=== PATIENT | female | born 1990 | race Caucasian/White ===

== ENCOUNTER → 2019-10-15 09:16 | Outpatient (CLI) | payer BC, SELFPAY ==
--- NOTE | ~2019-10-15 | US_ITS ---
EXAMINATION: US abdomen complete EXAM DATE: 10/15/2019 09:54 INDICATION: Generalized abdominal pain, diarrhea. Irritable bowel syndrome. TECHNIQUE: Multiple grayscale and Doppler images of the complete abdomen were obtained (by a technolo gist who performed the scan) and subsequently reviewed. There is no prior study for comparison. FINDINGS: The abdominal aorta is normal in caliber. Visualized portion IVC is patent. The pancreatic head a nd body are normal in appearance. The pancreatic tail is not visualized. The liver has normal echogenicity and contour. There are no focal liver lesions identified. There is no evidence of intrahepatic biliary duct dilation. Portal venous flow was seen in the hepatopedal , normal direction and has normal Doppler waveform. Common bile duct measures 3-4 mm, which is normal. The gallbladder wall is normal in thickness, with expected amount of distention. No sonographic evidence of pericholecystic fluid. There is no cholel ithiases. Technologist performing exam reports patient did not demonstrate sonographic James's sign. Please note that this sign is less reliable in patients who have received pain medication. Right kidney: There is normal contour and echogenicity. It measures 10.8 x 4.2 x 6.2 centimeters. There are no focal renal lesions identified. There is no hydronephrosis. Left kidney: There is normal contour and echogenicity. It measures 11.4 x 5.3 x 5.3 centimeters. T here are no focal renal lesions identified. There is no hydronephrosis. The spleen measures 9.9 x 4.4 centimeters and is morphologically normal. IMPRESSION: 1. Unremarkable complete abdominal ultrasound exam. Reviewed, dictated and finalized at location A. 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
== END ==
PROVIDERS: PCP Emergency Medicine; Visit Provider Emergency Medicine
DX: K58.0 Irritable bowel syndrome with diarrhea (principal)
CPT/HCPCS: 76700

== ENCOUNTER 2020-06-26 14:55 | Emergency (ER) | payer OTHER, SELFPAY ==
[2020-06-26] VITALS (20 sets, daily range): BP systolic 99–132; BP diastolic 82–95; PULSE 75–125; RESP 10–36; TEMP 36.9; O2SAT 96–100
--- NOTE | ~2020-06-26 | XR_ITS ---
EXAMINATION: XR chest 2V EXAM DATE: 06/26/2020 15:19 INDICATION: CHEST PAIN/SOB FOR 45 MIN, LT SHOULDER PAIN,HX OF OLD STERNUM FX TECHNIQUE: Frontal and lateral projections of the chest obtained and reviewed. Comparison is made to prior examination from 08/06/2008. FINDINGS: The lungs are clear. There are no pleural effusions. The cardiomediastinal silhouette is within normal limits. There is no pneumothorax suspected. The bones and soft tissues are unremarkab le. IMPRESSION: No acute cardiopulmonary findings. Reviewed, dictated and finalized at location A.
--- NOTE | 2020-06-26 14:57 | ECG_ITS ---
Measurements Intervals T[place] Rate: 105 P: 82 WI: 112 QRS: 85 QRSD: 94 T: 72 QT: 331 QTc: 439 Interpretive Statements SINUS TACHYCARDIA WITH SHORT WI INTERVAL BORDERLINE ST-T WAVE ABNORMALITY- ANTEROLAT/INF LEADS BASELINE ARTIFACT- I, II, III, AVR, AVL, AVF, V4-V6 ABNORMAL ECG Electronically Signed On 06-26-2020 15:13:32 CDT by James Saini D.O.
[2020-06-26 15:18] LABS: Basophils Absolute Auto 0.1 K/mm3 (0.0-0.1); Basophils Percent Auto 1.3 % (0.2-1.2); Eosinophils Absolute Auto 0.2 K/mm3 (0-0.3); Eosinophils Percent Auto 3.9 % (0-4.4); Hematocrit 39.1 % (37.0-47.0); Hemoglobin 13.2 g/dL (12.0-15.0); Immature Granulocyte Absolute 0.01 K/mm3 (0.00-0.031); Immature Granulocyte Percent A 0.2 % (0-0.5); Lymphocytes Absolute Auto 1.75 K/mm3 (0.9-3.2); Lymphocytes Percent Auto 32.3 % (18.3-44.2); Mean Corpuscular HGB Conc 33.8 g/dl (32-36); Mean Corpuscular Hemoglobin 29.9 pg (26-34); Mean Corpuscular Volume 88.5 fl (80-100); Mean Platelet Volume 10.4 fl (7.4-10.4); Monocytes Absolute Auto 0.3 K/mm3 (0.1-0.6); Monocytes Percent Auto 6.1 % (2.6-8.5); Neutrophils Percent Auto 56.2 % (45.5-73.1); Platelet Count Result 331 k/mm3 (150-375); Red Blood Count 4.42 M/mm3 (4.2-5.4); Red Cell Distribution Width 11.9 % (11.5-14.5); White Blood Count 5.4 K/mm3 (4.5-10.0)
[2020-06-26] MEDS: ASPIRIN 81 MG CHEWABLE TABLET 324 MG PO (15:21)
[2020-06-26] MEDS: BELLADONNA ALK/PHENOB ELIX 10 ML, MAG HYDROX/ALUMINUM HYD/SIMETH 30 ML, LIDOCAINE HCL 2... PO (15:21)
[2020-06-26 15:28] LABS: Prothrombin Time 12.9 Seconds (11.1-14.7)
[2020-06-26 15:29] LABS: Partial Thromboplastin Time 27.9 SECONDS (22.3-36.8)
[2020-06-26 15:30] LABS: Anion Gap 11 mmol/L (8-16); Blood Urea Nitrogen 15 mg/dL (7-17); Calcium 9.7 mg/dL (8.4-10.2); Carbon Dioxide 28 mmol/L (22-30); Chloride 103 mmol/L (98-107); Estimated CRCL calculation 64 ml/min; Estimated Glomerular Filt Rate > 60; Glucose 99 mg/dL (65-105); Potassium 3.6 mmol/L (3.4-5.0); Sodium 142 mmol/L (137-145)
[2020-06-26 15:41] LABS: Troponin I < 0.012 ng/mL (0.000-0.034)
[2020-06-26] MEDS: KETOROLAC 30 MG/ML VIAL (*BKC) IV PUSH (16:33)
--- NOTE | 2020-06-26 16:42 | ED.CHESTPAIN ---
HPI - Chest Pain General Chief Complaint: Chest Pain Stated Complaint: CP & SOB Time Seen by Provider: 06/26/20 14:57 History of Present Illness HPI narrative: Patient is a 29-year-old female who presents ER with central chest discomfort. Feels like pressure. No radiation. Better when she lays down flat. Has occurred a couple times over the last few weeks. This time is lasted for approximately an hour so she opted to come to the ER for further evaluation. No nausea/vomiting/sweats. Not associated with eating or drinking. She has no cough. Does not feel any acid reflux. She is currently being evaluated by her primary care doctor for palpitations she has been having. Heart rate does not seem to go above and 120 bpm when she is having her palpitations. States sometimes it feels like she skips a beat. Related Data Allergies Allergy/AdvReac Type Severity Reaction Status Date / Time No Known Allergies Allergy Unverified 10/12/18 13:39 Review of Systems Review of Systems: All systems reviewed & are unremarkable except as noted in HPI and below Constitutional: Constitutional: Denies chills, Denies fever(s) and Denies weakness ENT: Denies nasal congestion and Denies sore throat Cardiovascular: Cardiovascular: Reports chest pain, Reports rapid heart rate and Denies radiating jaw, neck or arm pain Respiratory: Respiratory: Denies cough, Denies dyspnea and Denies wheezing Gastrointestinal: Gastrointestinal: Denies abdominal pain, Denies nausea and Denies vomiting Musculoskeletal: Musculoskeletal: Denies back pain and Denies muscle cramps PMFSH Past Medical History Medical History (Updated 06/26/20 @ 18:53 by Eugene Soto MD) IBS (irritable bowel syndrome) Surgical History Surgical History (Updated 06/26/20 @ 16:47 by Eugene Soto MD) H/O section Family History Family History (Updated 07/29/16 @ 14:27 by DOCTOR UNKNOWN) Grandparent Cerebrovascular accident Social History Social History Smoking status: Never smoker Alcohol intake: never Gender identity (if verbalized by the patient): Female Sexual Orientation (if Verbalized by the Patient): Straight or Heterosexual Exam Narrative: Exam Narrative: GENERAL: Well-appearing, well-nourished, and in no acute distress. HEAD: Normocephalic, atraumatic. CHEST: Clear to auscultation. No respiratory distress. HEART: Tachycardic and regular. Normal peripheral pulses. ABDOMEN: Soft, nontender, nondistended. EXTREMITIES: Normal range of motion. No edema. SKIN: Warm, dry, no rash. NEURO: Alert and oriented x3. PSYCH: Normal mood and affect. Course Course Emergency Course: Patient informed of results. Moderate improvement with Toradol. Discharge home with anti-inflammatories. Vital Signs Vital signs: Vital Signs Temperature 98.4 F 06/26/20 14:59 Pulse Rate 111 H 06/26/20 14:59 Respiratory Rate 16 06/26/20 14:59 Blood Pressure 132/95 H 06/26/20 14:59 Pulse Oximetry 100 06/26/20 14:59 Temperature 98.4 F 06/26/20 14:59 Pulse Rate 111 H 06/26/20 15:06 Respiratory Rate 12 06/26/20 15:06 Blood Pressure 132/95 H 06/26/20 15:06 Pulse Oximetry 100 06/26/20 15:06 MDM - Chest Pain Lab Data Result diagrams: 06/26/20 15:11 06/26/20 15:11 Labs: Lab Results 06/26/20 06/26/20 06/26/20 Range/Units 15:11 15:11 15:11 WBC 5.4 (4.5-10.0) K/mm3 RBC 4.42 (4.2-5.4) M/mm3 Hgb 13.2 (12.0-15.0) g/dL Hct 39.1 (37.0-47.0) % MCV 88.5 (80-100) fl MCH 29.9 (26-34) pg MCHC 33.8 (32-36) g/dl RDW 11.9 (11.5-14.5) % Plt Count 331 (150-375) k/mm3 MPV 10.4 (7.4-10.4) fl Immature Gran % (Auto) 0.2 (0-0.5) % Neut % (Auto) 56.2 (45.5-73.1) % Lymph % (Auto) 32.3 (18.3-44.2) % Petroleum % (Auto) 6.1 (2.6-8.5) % Eos % (Auto) 3.9 (0-4.4) % Baso % (Auto) 1.3 H (0.2-1.2) % Lymph # (Auto) 1.75 (0.9-3.2) K/mm3
[2020-06-26 18:15] LABS: Troponin I < 0.012 ng/mL (0.000-0.034)
== END 2020-06-26 19:04 | disposition home or self-care (01) ==
PROVIDERS: Emergency Provider Emergency Medicine; PCP Nurse Practitioner Family
DX: R09.1 Pleurisy (principal); K58.9 Irritable bowel syndrome, unspecified; R00.0 Tachycardia, unspecified; R94.31 Abnormal electrocardiogram [ECG] [EKG]
CPT/HCPCS: 36415; 71046; 80048; 84484; 85025; 85610; 85730; 93005; 96374; 99284; A9270; J1885

== ENCOUNTER 2020-07-19 11:30 | Outpatient (CLI) | payer OTHER, SELFPAY ==
--- NOTE | ~2020-07-19 | US_ITS ---
EXAMINATION: US right upper quadrant DATE: 07/19/2020 12:19 INDICATION: Abnormal liver function tests. TECHNIQUE: Multiple grayscale and Doppler ultrasound images of the abdomen were obtained. COMPARISON: Ultrasound 10/15/2019 FINDINGS: The visualized portions of the head, body, and tail of the pancreas are normal. The liver i s normal without focal lesion. There is normal flow in main portal vein. The gallbladder is normal in size. No gallstones or gallbladder wall thickening. There was no sonographic James sign. The common duct is normal and measures 3 mm. Right kidney is normal. IMPRESSION: 1. Normal right upper quadrant ultrasound. Reviewed, dictated and finalized at location B. 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
== END 2020-07-19 11:31 | disposition home or self-care (01) ==
PROVIDERS: PCP Nurse Practitioner Family; Visit Provider Nurse Practitioner Family
DX: R07.89 Other chest pain (principal)
CPT/HCPCS: 76705

== ENCOUNTER 2020-07-20 10:36 | Outpatient (CLI) | payer OTHER, SELFPAY ==
--- NOTE | 2020-07-31 12:11 | WPDHOLTEREM ---
Holter/Event Monitor Holter/Event Monitor Date of procedure: 07/20/20 Procedure Type: 48 hour holter monitor Indications: Palpitations Conclusion: 1. 48 hour holter monitor on 07/20/20. 2. Underlying rhythm is sinus rhythm. HR range 52-141 bpm; average HR 82 bpm. 3. There are 5 pmemature supraventricular complexes. No supraventricular tachycardia. 4. No premature ventricular complex. No ventricular tachycardia. 5. No sinoatrial or atrioventricular blocks. No significant pauses greater than 2 seconds. 6. No symptoms available for correlation.
== END 2020-07-20 10:37 | disposition home or self-care (01) ==
LOC: ANHCARD 10:37
PROVIDERS: PCP Nurse Practitioner Family; Visit Provider Nurse Practitioner Family
DX: R00.2 Palpitations (principal)
CPT/HCPCS: 93225; 93226

== ENCOUNTER 2020-07-31 10:20 | Outpatient (NON) | payer OTHER, SELFPAY ==
[2020-08-01 01:18] LABS: SARS-CoV-2 RNA PCR Positive
== END 2020-07-31 10:21 ==
LOC: ANHCOVIDDT 10:21
PROVIDERS: PCP Nurse Practitioner Family; Visit Provider Nurse Practitioner Family
DX: U07.1 COVID-19 (principal); R05 Cough
CPT/HCPCS: 87635; C9803; U0003

== ENCOUNTER → 2021-05-05 10:09 | Outpatient (CLI) | payer OTHER, SELFPAY ==
--- NOTE | ~2021-05-05 | US_ITS ---
US pelvic complete DATE: 05/05/2021 10:22 INDICATION: Pelvic pain and fullness, vaginal bleeding TECHNIQUE: Real-time imaging via transabdominal approach COMPARISON: 06/27/2019 pelvic ultrasound FINDINGS: The uterus measures 7.8 cm height, 4.3 cm anteroposterior and 4.7 cm transverse dimension. The central endometrial echo complex measures 6 mm anteroposterior dimension. The right ovary measures 3.9 x 2.8 x 3.6 cm, with vascular flow. The left ovary measures 3.4 x 2.0 x 2.2 cm, with vascular flow. No abnormal pelvic mass or abnormal pelvic fluid collection is detected. IMPRESSION: Normal examination Reviewed, dictated and finalized at Location A. Reviewed, dictated and finalized at location A. IMPRESSION: Normal examination
== END ==
PROVIDERS: Visit Provider Nurse Practitioner
DX: R10.2 Pelvic and perineal pain (principal)
CPT/HCPCS: 76856

== ENCOUNTER 2021-09-04 15:04 | Emergency (ER) | payer OTHER, SELFPAY ==
--- NOTE | 2021-09-04 15:10 | ED.URI ---
HPI - URI/Sore Throat General Chief Complaint: Upper Respiratory Infection Stated Complaint: Runny Nose,Congestion,Cough,Bilateral Ear Time Seen by Provider: 09/04/21 15:10 Source: patient and RN notes reviewed History of Present Illness HPI Narrative: Patient is a 30-year-old female who presents the urgent care with complaints of runny nose, congestion, cough and bilateral ear pain. Patient states that symptoms have been ongoing for the last 10 days and she has been using Claritin and [id number] medication for symptom relief. Patient also reports of recurrent fever after being on amoxicillin last week for strep. Patient states that she was only taking the amoxicillin for 7 days. Reports of a slight residual sore throat. Denies of any exposure to Covid or influenza. Currently denies of any shortness of breath or chest pain. No other acute complaints. No acute distress noted. Patient read the plan of care. Some parts of this dictation were generated by voice recognition software and may contain typographical and/or grammatical inaccuracies. Related Data Allergies Allergy/AdvReac Type Severity Reaction Status Date / Time No Known Allergies Allergy Verified 09/04/21 15:20 Review of Systems Review of Systems: CONSTITUTIONAL: Reports a fever EYES: Denies visual changes, redness, or discharge. ENT: Reports of postnasal drainage, sore throat, congestion bilateral otalgia CARDIOVASCULAR: Denies chest pain, palpitations, or edema. RESPIRATORY: Reports of cough without dyspnea GASTROINTESTINAL: Denies abdominal pain, nausea, vomiting, or diarrhea. GENITOURINARY: Denies dysuria or hematuria. SKIN: Denies rash or itching. MUSCULOSKELETAL: Denies back pain, joint pain, or myalgia. NEUROLOGIC: Denies headache, numbness, or weakness. All other systems reviewed are negative, except as documented in HPI. [facility] Past Medical History Medical History (Updated 09/04/21 @ 15:34 by LINDA Will) IBS (irritable bowel syndrome) Surgical History Surgical History (Updated 06/26/20 @ 16:47 by Eugene Soto MD) H/O section Family History Family History (Updated 07/29/16 @ 14:27 by DOCTOR UNKNOWN) Grandparent Cerebrovascular accident Social History Social History Smoking status: Never smoker Alcohol intake: never Gender identity (if verbalized by the patient): Female Sexual Orientation (if Verbalized by the Patient): Straight or Heterosexual Comments At the time of my signature, I reviewed and agree with the nursing past medical, surgical, social, and family history. There is no relevant family history pertinent to the patient complaint. Exam Narrative: GENERAL: This is a well-nourished, well-developed patient, in no apparent distress. HEAD: normocephalic, atraumatic. EYES: PERRL. Sclera clear/white. Vision is grossly intact. EARS: External ears normal, auditory canals clear and without drainage, TMs normal without perforation. Hearing grossly intact. NOSE: External nose normal with no obvious nasal discharge, nares without redness, clear to yellow rhinorrhea. THROAT: Mucous membranes moist mild erythema of the posterior oropharynx with moderate postnasal drainage NECK: Neck supple, non-tender without lymphadenopathy, masses or thyromegaly. CARDIOVASCULAR: Regular rate and rhythm without murmurs, gallops, or rubs. RESPIRATORY: Clear to auscultation. Breath sounds equal bilaterally. No wheezes, rales, or rhonchi. SKIN: warm, intact with no suspicious lesions or rash, good texture and turgor. NEURO: awake, alert, and oriented to person, place and time. There were no obvious focal neurologic abnormalities. EXTREMITIES: No clubbing, cyanosis, or edema. Course Vital Signs Vital signs: Vital Signs Temperature 98.4 F 09/04/21 15:15 Pulse Rate 111 H 09/04/21 15:15 Respiratory Rate 16 09/04/21 15:15 Blood Pressure 116/77 09/04/21 15:15 Pulse Oximetry 100 09/04/21 15:15 Tem
[2021-09-04 15:15] VITALS: BP 116/77; PULSE 111; RESP 16; TEMP 36.9; O2SAT 100
== END 2021-09-04 15:40 | disposition home or self-care (01) ==
PROVIDERS: Emergency Provider Nurse Practitioner Family; PCP Nurse Practitioner Family
DX: J32.9 Chronic sinusitis, unspecified (principal)
CPT/HCPCS: 87081; 87880; 99213; G0463

== ENCOUNTER 2022-06-16 16:07 | Emergency (ER) | payer OTHER, SELFPAY ==
--- NOTE | ~2022-06-16 | XR_ITS ---
EXAMINATION: XR chest 2V Exam Date/Time: 06/16/2022 16:28 CDT HISTORY: chest pain/sob/covid+ Comparison: 06/26/2020. RESULT: Lines, tubes, and devices: None. Lungs and pleura: Clear. Cardiomediastinal silhouette: Stable. Other: No acute osseous or upper abdominal finding. IMPRESSION: No acute cardiopulmonary process. Reviewed, dictated and finalized at location K.
[2022-06-16 16:39] VITALS: BP 147/87; PULSE 118; RESP 20; TEMP 37; O2SAT 100
--- NOTE | 2022-06-16 16:49 | ED.URI ---
HPI - URI/Sore Throat General Chief Complaint: Upper Respiratory Infection Stated Complaint: Chest Pain,Shortness of Breath,Covid+ Source: patient Mode of arrival: ambulatory Limitations: no limitations History of Present Illness HPI Narrative: 31-year-old female presents to [facility] with complaints of chest tightness, nonproductive cough, bodies, chills and intermittent shortness of breath for the past 5 days. Patient reports that she tested positive for COVID 5 days ago. Patient reports that last week to travel to [place] for a family wedding. Patient reports that she received 1 COVID-vaccine but was unable to receive others as she had a reaction to the first vaccine. Patient is a non-smoker. Patient denies sick contacts. Patient denies nausea, vomiting, diarrhea or wheezing. MD elicited complaint: cough and other (SOB, chest tightness ) Onset (ago): day(s) (5) Description of mucous: clear Able to tolerate fluids by mouth: Yes Context: recent travel Associated symptoms: fever, chills, myalgias and shortness of breath Related Data Home Medications Medication Instructions Recorded Confirmed levonorgestrel 20.1 mcg/24 hrs (6 See Rx Instructions .Route .COMPLEX 06/16/22 06/16/22 yrs) 52 mg intrauterine device (Liletta) Allergies Allergy/AdvReac Type Severity Reaction Status Date / Time amitriptyline AdvReac Severe Chest Pain Verified 06/16/22 16:53 prednisone AdvReac Mild Hives Verified 06/16/22 16:53 Review of Systems Constitutional: Constitutional: Reports chills, Denies fatigue, Reports fever(s) and Denies weakness ENT: Denies dysphagia, Denies vertigo and Denies dizziness Cardiovascular: Comments: Chest tightness Respiratory: Respiratory: Reports cough and Denies wheezing Comments: Chest tightness, intermittent shortness of breath Gastrointestinal: Gastrointestinal: Denies diarrhea, Denies nausea and Denies vomiting Musculoskeletal: Musculoskeletal: Denies arthralgias and Denies joint swelling Neurologic: Denies dizziness PMFSH Past Medical History Medical History IBS (irritable bowel syndrome) Surgical History Surgical History H/O section Family History Family History Grandparent Cerebrovascular accident Social History Social History Smoking status: Never smoker Alcohol intake: never Gender identity (if verbalized by the patient): Female Sexual Orientation (if Verbalized by the Patient): Straight or Heterosexual Comments At time of signature, I agree with nursing past medical, surgical, social and family history. There is no relevant family history pertinent to the presenting complaint. Exam Const: General: healthy appearing and no acute distress Nutritional Appearance: well nourished Orientation/consciousness: patient oriented x3 Limitations: no limitations HENMT: Ears: external ears normal and TM's normal bilaterally Face/Nose/Sinus: Normal external nose present Face and sinus: normal facial exam Mouth: Yes Normal oral and palatal mucosa present Teeth and gingiva: dentition normal Throat: posterior oropharynx normal and uvula midline Neck: Neck: normal visual inspection Chest: Chest palpation & inspection: normal inspection of the chest Resp: Effort & Inspection: normal respiratory effort and not labored Auscultation: clear to auscultation bilaterally, no crackles, no rales, no rhonchi and no wheezes Cardio: Rate: regular rate Rhythm: regular rhythm Heart sounds: no murmurs Skin: General skin exam: normal color Rashes: no rashes Wounds: no wounds Neuro: General: patient oriented x3 Speech: normal speech Gait exam (Neuro): Normal gait present Psych: Affect: normal affect Attitude: cooperative Course Course Level of Car
[2022-06-16 17:15] VITALS: PULSE 94; O2SAT 100
== END 2022-06-16 17:23 | disposition home or self-care (01) ==
PROVIDERS: Emergency Provider Nurse Practitioner Family; PCP Physician Assistant
DX: U07.1 COVID-19 (principal)
CPT/HCPCS: 71046; 99213; G0463

== ENCOUNTER 2022-09-05 12:16 | Emergency (ER) | payer OTHER, SELFPAY ==
[2022-09-05 12:33] VITALS: BP 116/73; PULSE 96; RESP 18; TEMP 37; O2SAT 99
--- NOTE | 2022-09-05 12:36 | ED.GENADULT ---
HPI - General Adult General Chief complaint: Upper Respiratory Infection Stated complaint: sorethroat History of Present Illness HPI narrative: 31 y/o female. PMHx None reported. Presents to [facility] today with acute complaints of sore throat and congestion, worsening > the past 48 hours. She reports fever at home, none since yesterday. No lethargy. No neck pain or stiffness. No dyspnea, dysphagia, involuntary drooling. Denies chest congestion. She tells me she has young children at home, ill in the past 1 week w/similar issues. No additional acute c/o upon PE. Related Data Home Medications Medication Instructions Recorded Confirmed levonorgestrel 20.4 mcg/24 hrs (8 See Rx Instructions .Route .COMPLEX 06/16/22 09/05/22 yrs) 52 mg intrauterine device (Liletta) Allergies Allergy/AdvReac Type Severity Reaction Status Date / Time amitriptyline AdvReac Severe Chest Pain Verified 09/05/22 12:39 prednisone AdvReac Mild Hives Verified 09/05/22 12:39 Review of Systems Review of Systems: CONSTITUTIONAL: Positive fever. No chills, sweats. ENT: Positive rhinorrhea, congestion, sore throat. No otalgia. CARDIOVASCULAR: Denies chest pain, palpitations, edema. RESPIRATORY: Denies dyspnea, wheezing, cough GASTROINTESTINAL: Denies abdominal pain, nausea, vomiting, diarrhea. All other systems have been reviewed: Unless noted remaining ROS Negative. PMFSH Past Medical History Medical History IBS (irritable bowel syndrome) Surgical History Surgical History H/O section Family History Family History Grandparent Cerebrovascular accident Social History Social History Smoking status: Never smoker Alcohol intake: never Gender identity (if verbalized by the patient): Female Sexual Orientation (if Verbalized by the Patient): Straight or Heterosexual Exam Narrative: GENERAL: This is a well-nourished, well-developed adult, in no apparent distress. HEAD: normocephalic. EYES: Sclera clear/white. EARS: External ears normal, auditory canals clear and without drainage, TMs normal. NOSE: External nose normal. Positive Rhinorrhea, no obstruction, nares patent. THROAT: Mucous membranes moist, posterior pharynx is erythematous, mild exudative changes. No gross swelling, uvula midline, palate soft. NECK: Neck supple, non-tender without lymphadenopathy, masses or thyromegaly. No meningeal signs. CARDIOVASCULAR: Regular rate and rhythm without murmurs, gallops, or rubs. RESPIRATORY: Clear to auscultation. Breath sounds equal bilaterally. No wheezes, rales, or rhonchi. GASTROINTESTINAL: Abdomen soft, non-tender, nondistended. Bowel sounds are active. No guarding. SKIN: warm, intact with no suspicious lesions or rash, good texture and turgor. NEURO: Alert, active, and age appropriate. No focal neurologic deficits. Course Course Level of Care: Express Care Visit Vital Signs Vital signs: Vital Signs Temperature 37.0 C 09/05/22 12:33 Pulse Rate 96 09/05/22 12:33 Respiratory Rate 18 09/05/22 12:33 Blood Pressure 116/73 09/05/22 12:33 Pulse Oximetry 99 09/05/22 12:33 Oxygen Delivery Room Air 09/05/22 12:33 Temperature 37.0 C 09/05/22 12:33 Pulse Rate 96 09/05/22 12:33 Respiratory Rate 18 09/05/22 12:33 Blood Pressure 116/73 09/05/22 12:33 Pulse Oximetry 99 09/05/22 12:33 Oxygen Delivery Room Air 09/05/22 12:33 Medical Decision Making [facility] Narrative Medical decision making narrative: -Appears overall non-toxic. -Rapid Strep: Negative. SEnt for additional CX analysis. -Start Amoxicillin based on PE & Hx. May DC ATB regimen if CX is negative. -OTC remedies prn. -PCP F/U 1WK. Differential Diagnosis Differential
== END 2022-09-05 12:45 | disposition home or self-care (01) ==
PROVIDERS: Emergency Provider Nurse Practitioner Adult Health; PCP Physician Assistant
DX: J02.9 Acute pharyngitis, unspecified (principal); J06.9 Acute upper respiratory infection, unspecified
CPT/HCPCS: 87081; 87880; 99213; G0463

== ENCOUNTER 2022-12-17 17:40 | Emergency (ER) | payer OTHER, SELFPAY ==
--- NOTE | ~2022-12-17 | XR_ITS ---
EXAM: XR abdomen/kub 1V DATE: 12/17/2022 18:17 HISTORY: supra pubic pain started today . COMPARISON: None available. FINDINGS: Clear lung bases. Normal bowel gas pattern. No organomegaly. Pelvic phleboliths in the rig ht pelvis. IUD, presumably in good position. Partially fused L5 posterior arch. Partial L5 sacralizat ion on the left. IMPRESSION: No radiographic evidence of obstruction or ileus. Reviewed, dictated and finalized at location K.
[2022-12-17 17:53] VITALS: BP 120/72; PULSE 82; RESP 16; TEMP 37.1; O2SAT 100
[2022-12-17 17:55] VITALS: BP 120/72; PULSE 82; RESP 16; TEMP 37.1; O2SAT 100
--- NOTE | 2022-12-17 18:01 | ED.ABDPAIN ---
HPI - Abdominal Pain General Chief Complaint: Abdominal Pain Stated Complaint: lower abdominal pain Time Seen by Provider: 12/17/22 18:01 Source: patient Mode of arrival: ambulatory Limitations: no limitations History of Present Illness HPI narrative: 32 yo F with hx of IBS presents with c/o suprapubic ABD pain starting today. States that pain feels crampy and bloating and like she would be having a period but has not had one since her IUD was placed in February. She is concerned that her IUD has moved. Denies urinary symptoms. Denies vaginal discharge. States that she has been avoiding trigger foods for her IBS and has not had at issues lately. Does not think she is constipated but states is possible. No hx of diverticulitis of bowel perforation related to IBS. afebrile. Pt is smiling and talkative. States her was home from work and could stay with kids so just ran up here real quick to make sure nothing serious is going on . All systems reviewed and negative except as noted above. Related Data Home Medications Medication Instructions Recorded Confirmed levonorgestrel 20.4 mcg/24 hrs (8 See Rx Instructions .Route .COMPLEX 06/16/22 12/17/22 yrs) 52 mg intrauterine device (Liletta) Allergies Allergy/AdvReac Type Severity Reaction Status Date / Time amitriptyline AdvReac Severe Chest Pain Verified 09/05/22 12:39 prednisone AdvReac Mild Hives Verified 09/05/22 12:39 Review of Systems Review of Systems: CONSTITUTIONAL: Denies fever, chills, or sweats. EYES: Denies visual changes, redness, or discharge. ENT: Denies rhinorrhea, congestion, sore throat, or otalgia. CARDIOVASCULAR: Denies chest pain, palpitations, or edema. RESPIRATORY: Denies cough or dyspnea. GASTROINTESTINAL: reports abdominal pain. Denies nausea, vomiting, or diarrhea. GENITOURINARY: Denies dysuria or hematuria. SKIN: Denies rash or itching. MUSCULOSKELETAL: Denies back pain, joint pain, or myalgia. NEUROLOGIC: Denies headache, numbness, or weakness. PSYCHIATRIC: Denies anxiety or depression. All other systems reviewed are negative, except as documented in HPI. [facility] Past Medical History Medical History IBS (irritable bowel syndrome) Surgical History Surgical History H/O section Family History Family History Grandparent Cerebrovascular accident Social History Social History Smoking status: Never smoker Alcohol intake: never Gender identity (if verbalized by the patient): Female Sexual Orientation (if Verbalized by the Patient): Straight or Heterosexual Comments At time of signature, agree with nursing past medical, surgical, social and family history. There is no relevant family history pertinent to the presenting complaint. Exam Narrative: GENERAL: This is a well-nourished, well-developed patient, in no apparent distress. HEAD: normocephalic, atraumatic. EYES: PERRL. Sclera clear/white. Vision is grossly intact. EARS: External ears normal NOSE: External nose normal NECK: Neck supple, non-tender without lymphadenopathy, masses or thyromegaly. CARDIOVASCULAR: Regular rate and rhythm without murmurs, gallops, or rubs. RESPIRATORY: Clear to auscultation. Breath sounds equal bilaterally. No wheezes, rales, or rhonchi. GASTROINTESTINAL: Abdomen soft, non-tender, nondistended. Bowel sounds are active. No hepato-splenomegaly, or palpable masses. No guarding. SKIN: warm, Dry, intact with no suspicious lesions or rash, good texture and turgor. NEURO: awake, alert, and oriented to person, place and time. There were no obvious focal neurologic abnormalities. EXTREMITIES: No joint tenderness, effusion, or edema noted. Course Course Level of Care: Express Care Visit Vital Signs Vital signs: Vi
== END 2022-12-17 18:49 | disposition home or self-care (01) ==
PROVIDERS: Emergency Provider Nurse Practitioner Family; PCP Physician Assistant
DX: K59.00 Constipation, unspecified (principal); R14.1 Gas pain
CPT/HCPCS: 74018; 81003; 99213; G0463

== ENCOUNTER → 2022-12-23 09:31 | Outpatient (CLI) | payer OTHER, SELFPAY ==
--- NOTE | ~2022-12-23 | US_ITS ---
Pelvic ultrasound. Clinical History: Pelvic pain Technique: Realtime transabdominal and transvaginal scanning of the pelvis was performed. Color flow Doppler and Doppler spectral analysis were performed. Findings: The uterus is anteverted. The endometrial stripe has a thickness of 5 mm. IUD in satisfact ory position. No focal mass is identified. The right ovary measures 2.3 x 2.3 x 2.4 cm. No significant right ovarian or adnexal mass is seen. The left ovary measures 3.2 x 2.0 x 3.1 cm. No significant left ovarian or adnexal mass is seen. Vascular flow present in both ovaries on Doppler spectral analysis. There is no evidence of free fluid in the cul de sac. Impression: IUD in place, otherwise unremarkable exam. Reviewed, dictated and finalized at location . Impression: IUD in place, otherwise unremarkable exam.
== END ==
PROVIDERS: PCP Physician Assistant; Visit Provider Nurse Practitioner
DX: R10.2 Pelvic and perineal pain (principal); Z97.5 Presence of (intrauterine) contraceptive device
CPT/HCPCS: 76856

== ENCOUNTER → 2023-07-24 09:52 | Outpatient (CLI) | payer OTHER, SELFPAY ==
--- NOTE | ~2023-07-24 | US_ITS ---
EXAMINATION: US breast LT limited HISTORY: Skin thickening of the left breast and left nipple discharge TECHNIQUE: Limited left breast ultrasound was performed. FINDINGS: No sonographic correlate is identified for the patient's reported left breast thickening. I n addition, no sonographic correlate is identified for the patient's reported left nipple discharge. IMPRESSION: No specific sonographic correlate is identified for the patient's left nipple discharge or left breas t skin thickening. Further evaluation at this time should be based on clinical assessment. Continued follow-up physical examination is recommended. BI-RADS Category 1: Negative Reviewed, dictated and finalized at location A. KER AND PATCHER IMPRESSION: No specific sonographic correlate is identified for the patient's left nipple d ischarge or left breast skin thickening. Further evaluation at this time should be based on clinical assessment. Continued follow-up physical examination is r ecommended. BI-RADS Category 1: Negative
== END ==
PROVIDERS: PCP Nurse Practitioner; Visit Provider Obstetrics & Gynecology Gynecology
DX: N64.52 Nipple discharge (principal); N63.20 Unspecified lump in the left breast, unspecified quadrant
CPT/HCPCS: 76642

== ENCOUNTER 2024-08-10 09:40 | Outpatient (CLI) | payer OTHER, SELFPAY ==
--- NOTE | ~2024-08-10 | US_ITS ---
EXAMINATION: US transvaginal DATE: 08/10/2024 09:59 INDICATION: Abnormal uterine bleeding. TECHNIQUE: Multiple transvaginal sonographic images of the pelvis were obtained. COMPARISON: Pelvis ultrasound 12/23/2022. FINDINGS: The uterus measures 7.5 x 3.0 x 5.3 cm. There is no free fluid in the pelvis. The endometrial complex measures 4 mm in thickness. The right ovary measures 2.2 x 3.1 x 1.7 cm. The left ovary measures 3.1 x 2.3 x 2.4 cm. There is normal vascular flow in the ovaries. IMPRESSION: 1. Normal pelvis. Reviewed, dictated and finalized at location A. 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 Normal pelvis.
== END 2024-08-10 09:41 | disposition home or self-care (01) ==
LOC: MICIMG 09:40
PROVIDERS: PCP Nurse Practitioner; Visit Provider Nurse Practitioner
DX: N93.8 Other specified abnormal uterine and vaginal bleeding (principal)
CPT/HCPCS: 76830

== ENCOUNTER 2024-12-13 00:46 | Day surgery (SDC) | payer OTHER, SELFPAY ==
[2024-11-29 14:52] VITALS: BMI 20.7
--- NOTE | 2024-11-29 15:16 | PC.NURSE ---
Report to the Outpatient Waiting Room, entrance under the green pavilion located off [facility], at 0900 on 12-13-24. Planned Procedure Time: 1100.? Time changes happen often and if your time is changed the preop area will call you the afternoon before. - You and your visitor will be asked to self-screen and do not enter if you have any COVID symptoms. Please call surgeon if you need to reschedule. - A mask is optional within the hospital at this time. Patients may have clear liquids (water, carbonated beverages, clear teas, apple juice) until 3 hours prior to surgery with a maximum of 20 ounces. 0800 - No food from midnight until time of surgery and no smoking, or chewing tobacco (or any form of nicotine). No chewing gum, candy or mints. - Infants may have breast milk until 4 hours before surgery, formula 6 hours prior to surgery. - Children will be allowed to drink immediately following surgery.? If applicable, please bring a bottle or sippy cup to assist with drinking. Juice, water, soda, and popsicles are readily available.? For infants on formula, please bring formula the day of surgery.? Pacifiers are allowed. Take only the following medications with a SIP of water on the morning of surgery: bupropion DO NOT STOP ANY OF YOUR OTHER PRESCRIPTION MEDICATIONS PRIOR TO SURGERY EXCEPT THE FOLLOWING Hold all vitamins and supplements for 3 days per anesthesiologist. Medications to discontinue per physician: vitamins and supplements Date to take last dose: 12-10-24 Please no make-up, nail english, hairspray, perfume, deodorant, or body powder the day of surgery.? No jewelry (including any body piercings) or valuables the day of surgery, leave them at home.? Please take a shower or bath the night before, or the morning of, surgery with an antibacterial soap.? Wear comfortable, loose fitting clothing.? Children are encouraged to wear pajamas. - Jewelry must be removed prior to entering the operating room.? Rings and piercings that are not removed may be cut off. - The hospital will not accept responsibility for valuables.? - Please leave all valuables, including medications, at home the day of surgery. If you are going home after surgery, a licensed vending route driver must drive you home.? - NO public transportation without another adult if you receive anesthesia. - We recommend that an adult stay with you for 24 hours following discharge. - We also recommend that you do not drive, make important decision, drink alcoholic beverages, or take any drugs that were not prescribed by your health care provider for at least 24 hours after your discharge time. For Pediatric surgeries, we recommend two adults accompany the child home. Follow any additional instructions given to you from your surgeon. Telephone instructions given to Vijaya Gil and asked if any additional questions and then verbalized understanding. Patient advised to call surgeon office or pre surgery nurse liaison [phone] if any additional questions.
--- NOTE | 2024-12-12 10:30 | P.PNAN_ITS ---
Anes - Initial Pre Proc Eval Procedure: Operation Date: 12/13/24 11:00 Proposed Procedures p Hysteroscopy Dilation and Curettage - Crystal Soto MD Date/Time: 12/12/24 10:30 Surgeon: Crystal Soto MD Pre Op Diagnosis: menorrhagia Patient Data Age: 34 Gender: F Height: 1.65 m Weight: 56.7 kg Allergies Allergy/AdvReac Type Severity Reaction Status Date / Time amitriptyline AdvReac Severe Chest Pain Verified 11/29/24 14:44 prednisone AdvReac Mild Hives Verified 11/29/24 14:44 Home Medications ?Medication ?Instructions ?Recorded ?Confirmed ?Type bupropion HCl 150 mg 24 hr tablet, 150 mg PO DAILY 11/29/24 12/13/24 History extended release ergocalciferol (vitamin D2) 1,250 50,000 unit PO MONTHLY 11/29/24 12/13/24 History mcg (50,000 unit) capsule ketorolac 10 mg tablet 10 mg PO Q6H PRN migraines 11/29/24 11/29/24 History vitamin B complex (B-Complex 1 tablet PO DAILY 11/29/24 12/13/24 History tablet) Patient hx anesthesia problems: none Family hx anesthesia problems: none Results Review: All pre-operative results and documents have been reviewed as part of the pre- operative evaluation. [facility] Past Medical History Medical History (Updated 12/13/24 @ 07:57 by Crystal Soto MD) History of X2 IBS (irritable bowel syndrome) Surgical History Surgical History H/O section Family History Family History Grandparent Cerebrovascular accident Social History Social History Years smoked: 1 Smoking status: Former smoker Tobacco type: cigarettes Second hand tobacco smoke exposure: No Alcohol intake: current Alcohol use details: Rarely Substance use: never Substance use type: does not use Living arrangements: with family Gender identity (if verbalized by the patient): Female Sexual Orientation (if Verbalized by the Patient): Straight or Heterosexual Spiritual care concerns: No Anes - Eval Final PreProcedure Day of Procedure 12/12/24 10:30 Patient weight: normal Heart: regular rate and rhythm Lungs: clear to auscultation and normal air movement Airway: Mallampati scale class II Neurological: alert and oriented Last oral intake: >/= 8 hours ASA classification: II Emergent: no Anesthetic plan: proceed Anesthesia type and monitoring: general GIVS and standard monitoring Results Review: All pre-operative results and documents have been reviewed as part of the pre- operative evaluation. Informed Consent: The patient's anesthetic plan and its attendant risks and benefits were discussed with the patient/family/POA. Questions were solicited and answers provided to the satisfaction of the patient/family/POA.
--- OUTSIDE RECORDS SUMMARY | 2024-12-13 00:50 | XMS_ITS | Continuity of Care Document ---
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 [address] [facility], [place], [address], [place]. tel:[phone] Referring Provider: Kraig Miller, [address] [place] [address], [place], [address]. tel:[phone] [facility], [address] [place] [address], [id number], tel:[phone] [facility] No Information 4 [place]. [address] [facility], [place], [address], [place]. tel:[phone] Referring Provider: Kraig Miller, [facility] [facility] [address], [place], [address]. tel:[phone] [facility], [address] [place] [address], [id number], tel:[phone] [facility] Location No Information 4 [facility] Prov. . Referring Provider: Kraig Miller, [address] [place] [address], [place], [address]. tel:[phone] Family History Family Member Type Diagnosis Age At Onset Problem No family history of Rhiniti s Son Problem Asthma Brother Problem (finding) Asthma Payers Payer name Insurance type Covered democrat ID Bhavana ochoa(s) [facility] CI [id number] Social History Type Description Quantity Date Captured [...] (noticed rash after eating a sandwich at [facility]) or with soft drinks. She notes [...] vitamin B12 deficiency, vitamin D deficiencyPSH: section [id number] Allergies: NKDAAmitryptiline - h eart palpitations / [...] (noticed rash after eating a sandwich at [facility]) or with soft drinks. She notes [...] vitamin B12 deficiency, vitamin D deficiencyPSH: section [id number] Allergies: NKDAAmitryptiline - heart palpitations / anxiety [...]
--- OUTSIDE RECORDS SUMMARY | 2024-12-13 00:50 | XMS_ITS | Clinical Summary ---
Author Organization [facility] Address [address] [place] [address] Care Team Providers Care Real Estate Closing Coordinator Name Role Phone Cl Bains MD Primary Care Provider [phone] Cl Bains MD Unavailable Source Comments [facility],non-owned Affiliates and Associated Physician Practices is amultiple site organization consisting of ambulatory clinics and hospital sitesin [place], [place], [place] and [place]. This disclosure is being madepursuant to the Care Everywhere program and may not contain all information available regarding this patient. Last updated 18.[facility] Allergies No known active allergies Medications * Be aware that medications may not be up to date on this document. Alwaysverify current medications with the patient. Medication Sig Dispensed Refills Start Date End Date Status oxycodone-acetaminoph en (PERCOCET) 5-325 MG tablet Take 1 Tab by mouth every 4 hours as needed for Pain. 20 Tab 0 09/11/2012 Active ondansetron (ZOFRAN) 4 MG tablet Take 1 Tab by mouth every 4 hours as needed for Nausea/Vomiting. 10 Tab 0 09/11/2012 Active naproxen (NAPROSYN) 500 MG tablet Take 1 Tab by mouth 2 times daily as needed for Pain. 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, currently , antepartum 11/02/2015 History of delivery 11/02/2015 Frequent UTI 11/02/2015 Supervision of high risk in first trim ian 11/02/2015 Immunizations Name Administration Dates Next Due TDAP (7yrs+) 09/11/2012 Family History Medical History Relation Name Comments Cancer - Other Maternal Grandmother Cancer - Other Paternal Grandmother Relation Name Status Comments Maternal Grandmother Paternal Grandmother Social History Tobacco Use Types Packs/Day Years Used Date Smoking Tobacco: Never Smokeless Tobacco: Never Alcohol Use Standard Drinks/Week Comments No 0 (1 standard drink = 0.6 oz pur e alcohol) occasional Sex and Gender Information Value Date Recorded Sex Assigned at Not on file Gender Identity Not on file Sexual Orientation Not on file Last Filed Vital Signs Vital Sign Reading Time Taken Comments Blood Pressure 97/66 03/02/2020 1:49 PM CDT Pulse 80 03/02/2020 1:49 PM CDT Temperature 36.8 C (98.3 F) 03/02/2020 1:49 PM CDT Respiratory Rate 18 03/02/2020 1:49 PM CDT Oxygen Saturation 99% 03/02/2020 1:49 PM CDT Inhaled Oxygen Concentration - - Weight 50.3 kg (111 lb) 03/02/2020 1:49 PM CDT Height 165.1 cm (5' 5 ) 03/02/2020 1:49 PM CDT Body Mass Index 18.47 03/02/2020 1:49 PM CDT Plan of Treatment Health Maintenance Due Date Last Done Comments PAP SMEAR 1989 HIV SCREENING 2004 HEPATITIS C SCREENING 12/05/2007 HEPATITIS B VACCINE (1 of 3 - 19+ 3-dose series) 2008 DTAP/TDAP/TD VACCINES (2 - T d or Tdap) 09/11/2022 09/11/2012 COVID-19 VACCINE ( - 2023-2 5 season) 2024 DEPRESSION SCREENING 09/08/2024 INFLUENZA VACCINE (Season Ended) 2025 ZOSTER VACCINE (1 of 2) 12/10/2039 HIB VACCINE Aged Out No longer eligi ble based on patient's age to complete this topic HPV VACCINE Aged Out No longer eligi ble based on patient's age to complete this topic MENINGOCOCCAL (Group B) VACC INE SHARED DECISION-MAKING Aged Out No longer eligibl e based on patient's age to complete this topic MENINGOCOCCAL GROUPS A/C/Y/W VACCINE Aged Out No longer eligible b ased on patient's age to complete this topic PNEUMOCOCCAL VACCINE Aged Out No long er eligible based on patient's age to complete this topic Goals Goal Patient Goal Type Associated Problems Recent Progress Patient-Stated? Author Medication Management General On track( 020 2:02 PM CDT) Vijaya Diamond RN Note: Expected end date: Ongoing Interventions: Take all medications as prescribed Let your doctor know right away about any changes in your medications Make sure to request a refill of your medication at least one week prior to your last dose Care Teams Real Estate Closing Coordinator Relationship Specialty Start Date End Date Cl Bains MD PCP - General 12/29/20 Cl Bains MD [address] [place] [address] [place] [address] 10/12/19
--- OUTSIDE RECORDS SUMMARY | 2024-12-13 00:50 | XMS_ITS | Clinical Summary ---
Author Organization [facility] Address [address] [place] [address] Care Team Providers Care Pictures Editor Name Role Phone Unavailable Primary Care Provider Unavailabl e Allergies No known active allergies Medications koamwoif-mi-yyx- fe-fA ( VITAMIN) Oral TabIndications:M issed menses Take 1 Tab by mouth daily. 30 Tab 9 05/12/2013 Active Active Problems Problem Noted Date Diagnosed Date Observation for NRFHT, anomalies (poor mineralization, alyce club feet) A pos, GBS neg, will be pcs, mfm 11/30/2013 s/p PLTCS for anomaly (poor mineralizaton, bilateral club feet), boy Shakeel 11/30/2013 Ptc, pro decel WEU 11/08, form er twin preg (loss B @ 10 wk), FCT (poor bone mineralization, club feet), Procardia 30 XL BID, s/p terb x1/procardia 20 mg, +BV (flagyl) PNC 11/09: 2318 41% norm BFs, c/s del 11/08/2013 Twin 05/12/2013 Family History Medical History Relation Name Comments Healthy Brother 1 Healthy Brother 2 Healthy Father Diabetes Maternal Grandfather Stroke Maternal Grandfather Healthy Mother Diabetes Paternal Grandmother Healthy Sister Relation Name Status Comments Brother 1 Alive Brother 2 Alive Father Alive Maternal Grandfather Mother Alive Paternal Grandmother Sister Alive Social History Tobacco Use Types Packs/Day Years Used Date Smoking Tobacco: Former Cigarettes 0 04/11/2009 - 04/11/2013 Smokeless Tobacco: Never Tobacco Cessation:Counseling Given: Yes Alcohol Use Standard Drinks/Week Comments No 0 (1 standard drink = 0.6 oz pure alcohol) Stopped when found out about . Comments Unknown Sex and Gender Information Value Date Recorded Sex Assigned at Not on file Legal Sex Female 1:27 PM CDT Gender Identity Not on file Sexual Orientation Not on file Occupation Industry Job Start Date Job End Date Not on file Not on file Not on file Not on file Last Filed Vital Signs Vital Sign Reading Time Taken Comments Blood Pressure 122/71 12/04/2013 11:30 AM CDT Pulse 80 12/04/2013 11:30 AM CDT Temperature 36.6 C (97.8 F) 12/04/2013 11:30 AM CDT Respiratory Rate 20 12/04/2013 11:30 AM CDT Oxygen Saturation 99% 12/04/2013 12:00 AM CDT Inhaled Oxygen Concentration - - Weight 65.8 kg (145 lb) 11/30/2013 2:22 PM CDT Height 162.6 cm (5' 4 ) 11/30/2013 2:22 PM CDT Body Mass Index 24.89 11/30/2013 2:22 PM CDT Plan of Treatment Health Maintenance Due Date Last Done Comments HEPATITIS B VACCINES (1 of 3 - 19+ 3-dose series) 2008 HPV/Cotest (21-29) 2010 PAP SMEAR 2010 CERVICAL CANCER SCREENING 12/10/2019 HPV/Cotest (30-65) 12/10/2019 PAP SMEAR 12/10/2019 DTAP/TDAP/TD VACCINES (2 - T d or Tdap) 09/11/2022 09/11/2012 INFLUENZA VACCINE (#1) 2024 HPV VACCINES Aged Out No longer eligi ble based on patient's age to complete this topic Insurance [employer] CHO[employer] Advance Directives For more information, please contact: [phone] * Full Code (Latest Code Status on File) Date Activated Date Inactivated Comments 11/30/2013 11:56 PM 12/04/2013 3:26 PM * Full Code Date Activated Date Inactivated Comments 11/30/2013 6:01 PM 11/30/2013 11:56 PM * Full Code Date Activated Date Inactivated Comments 11/08/2013 11:36 PM 11/10/2013 2:58 PM
--- OUTSIDE RECORDS SUMMARY | 2024-12-13 00:50 | XMS_ITS | Data Portability ---
[facility] Address [address] [facility] [place] [address] Assessment No assessment recorded. Plan of Treatment Reminders Order Date Submit Date Provider Last Modified By Organization Details Last Modified Time Details Appointments ANY 15 2024 09:30A M MIKEY Licona Not available Not available Not available Lab None recorded. Referral patient registration specialist referral - possible food allergy/e czema 2023 [facility], [address] [place], [address], 08/26/2024 14:12:45 Procedures None recorded. Surgeries None recorded. Imaging None recorded. Medication Orders ketorolac 10 mg tablet [id number], [address], [place], [id number], 08/18/2024 10:42:50 ketorolac 30 mg/mL (1 mL) injection solution 2023 [email or web address] [id number], [address], [place], [id number], 08/19/2024 06:50:44 Patient TargetsNo targets recorded. Patient InstructionsNo instructions recorded. Reason for Referral Manager Welding Referral for Eczem a possible food allergy/eczema Referring Physician: Kraig Miller, Family Medicine, Encounter Date: 08/18/2024 Problems Name Problem SNOMED Code Status Onset Date Resolution Date Notes Provider Name and Address Organization Details Recorded Time Vitamin B12 deficiency (non anemic) 06845515 Active 2023 MIKEY Licona Attn: Accountin g,[address] [facility], [place], [address], [place] - [facility] 4 06:54:42 Vitamin D deficiency 86744639 Active 2023 MIKEY Licona Attn: Accountin g,[address] [facility], [place], [address], [place] [facility] 4 06:54:43 Irritable bowel syndrome 13420817 Active 2023 MIKEY Licona Attn: Accountin g,[address] [facility], [place], [address], [place] [facility] 4 06:54:44 Generalized anxiety disorder 82646934 Active 2023 MIKEY Licona Attn: Accountin g,[address] [facility], [place], [address], [place] [facility] 4 06:54:46 Adult health examination Active 2023 MIKEY Licona Attn: Accountin g,[address] [facility], [place], [address], [place] [facility] 4 06:54:47 Palpitations 23530872 Active 2023 Awa Perez MA null, [place] [facility] 4 15:42:18 Multiple premature ventricular complexes 314484732 Active 2023 Awa Perez [place] null, [place] [facility] 4 15:44:01 Migraine 35467674 Active 2023 MIKEY Licona Attn: Accountin g,[address] [place], [address], [place] [facility] 4 10:41:04 Problem Notes None recorded. Medical Equipment None Reported. Allergies Allergen ID Allergen Name Allergen Category Reaction Reaction Severity Criticality Documentation Date Start Date Code Code System Note Provider Name and Address Organization Details Recorded Time 191205 prednison e medicatio n hives Not available Not available 08/17/2024 8640 RxNorm Not Available Not Available Not Available 249164 amitripty line medicatio n palpitati ons Not available Not available 08/17/2024 704 RxNorm Not Available Not Available Not Available Medications Name Sig Start Date Stop Date Status Note LastModified by Organization Details LastModified Time ketorolac 30 mg/mL (1 mL) injection solution Inject 1 mL by intramusc ular route. 2023 active Not Available Not Available Not Avai lable ketorolac 10 mg tablet Take 1 tablet every 6 hours by oral route as needed, for migraines . 2023 active Not Available Not Available Not Avai lable cyanocobala min (vit B-12) 1,000 mcg/mL injection solution active Not Available Not Available Not Available clindamycin 2 % vaginal cream INSERT 1 APPLICATO RFUL VAGINALLY AT BEDTIME FOR 7 DAYS active Not Available Not Available No t Available ergocalcife rol (vitamin D2) 1,250 mcg (50,000 unit) capsule TAKE 1 CAPSULE BY MOUTH EVERY WEEK active Not Available Not Available No t Available amoxicillin 875 mg-potassiu m clavulanate 125 mg tablet TAKE 1 TABLET BY MOUTH TWICE DAILY FOR 10 DAYS active Not Available Not Available No t Available bupropion HCl XL 150 mg 24 hr tablet, extended release active Not Available Not Available Not Available levonorgest rel 20.4 mcg/24 hr (up to 8 yrs) 52 mg intrauterin e device Take by intrauter ine route. 08/18 completed Not Available Not Available Not Available Vitals Date Recorded Body height Body mass index (BMI) Body weight Oxygen saturation Oxygen saturation in Arterial blood by Pulse oximetry Heart rate Pain severity - 0-10 verbal numeric rating [Score] - Reported Body temperature Systolic blood pressure Diastolic blood pressure Provider Name and Address Organization Details Last Updated DateTime 4 165.1 cm 21 kg/m2 68358.0 9 g 98 % 98 % 89 /min 4 98.6 [degF] 108 mm[Hg] 80 mm[Hg] Saud Rondon [place] - [facility] 4 10:20:50 Social History None recorded. Functional Status None recorded. Mental Status None recorded. Family History Nothing Reported. Medical History No medical history recorded. Gynecological HistoryNo gynecological history recorded. Obstetrics History GPAL:G 0 P 0 0 0 0 Past Encounters Encounter ID Performer Location Encounter Start Date Encounter Closed Date Diagnosis/Indication Diagnosis SNOMED-CT Code Diagnosis ICD10 Code Diagnosis Note [id number] Topher Winn, [place] [facility] [place] [address] [facility] [address] [place] [address] 08/18/2024 10:09:38 08/24/2024 08:46:31 Adult health examination 446357352 Z00.00 Healthy diet and exercise, HCM as discussed Generalize d anxiety disorder 68455696 F41.1 This is a well controlled chronic conditions - The pharmacolo gic and non-pharma cologic treatments discussed. No SI/HI. Take medication as prescribed - Take medication at the same time every day and do not miss doses - Medication will take 2-3 weeks to reach full effect - Do not suddenly stop medication without consulting your provider first - Take time for yourself every day, get plenty of rest - Exercise can help elevate moods - If you do not have a good support system, talk to your provider about counseling options - Sometimes antidepres margot medication s can make suicidal thoughts worse. If you are experienci ng these thoughts you should report to the ER immediatel y - You can also call the suicide hotline at 4-723-428- 6404 Irritable bowel syndrome 60253692 K58.9 This is controlled with diet we will continue to follow Vitamin D deficiency 347 71803 E55.9 This is a stable chronic condition continue current meds labs at next draw Vitamin B1 2 deficiency (non anemic) 55417451 E53.8 This is a stable chronic condition, continue current medication s, labs at an extra Migraine 28371375 G43.90 9 Patient was given 30 mg of Toradol with relief I will give her some p.o. Toradol we discussed the importance of hydration we also discussed signs and symptoms that would warrant urgent attention if this reoccurs we discussed using Ubrelvy we did discuss the med use and side effects Eczema 03822659 L30.9 recurrent rash on face only after eating then resolved, concerning for food sensitivit y Health Concerns Section Related Observation LastModified by Organization Detai ls LastModified Time None Recorded Concern Status LastModified by Organization Details LastModified Time None Recorded Advance Directives Directive None Recorded Payers Encounter Date Sequence Insurance Name Policy Number Policy Metcalf Covered Member ID Metcalf Member ID Guarantor Name 08/18/2024 1 [facility] [id number] Vijaya Gil [id number] Vijaya Gil Notes Date Note Type Note Provider Name and Address Organization Details Recorded Time 08/18/2024 text/html New patient in t o establish with PCM and f/u for the following medical conditions -non-smoker:-exercis e: yes-colonoscopy: No FMHX-Flu shot: We discussed-Covid shots:-HPV:we dicsussed -mammogram:-Pap: 1 year-Bone density: Anxiety:well controlled Vitamin-D deficiency: Taking B12 deficiency: taking history migraines, this started 9 days ago, bitemporal and teeth hurt, pulsating, mild nausea, photosensative RAMESH Johnson [place] - [facility] 08/18/2024 16:42:36 OBGyn Episode No OBEpisode recorded.
--- OUTSIDE RECORDS SUMMARY | 2024-12-13 00:50 | XMS_ITS | Continuity of Care Document ---
Author Organization [facility] Address [address] [place] [address] Phone Care Team Providers Care Mail Caller Name Role Phone Unavailable Unavailable Unavailable Advance Directives Directive Yes / No Effective Date File Name No Information Encounters Encounter Description Practice Location Reason(s) For Visit Diagnoses Date Provider Providers Copied on Encounter [facility], [address] [facility], [place], [place], [id number], [place] tel:[phone] [facility] INPATIENT No Information Nov- 4 No Information Referring Provider: MARGARET Izquierdo, [address] [facility] [facility] [address], [place], [address]. tel:[phone] Family History Family Member Type Diagnosis Age At Onset No Information Payers Payer name Insurance type Covered alliance party ID Authoriza tion(s) No Information Social History Type Description Quantity Date Captured Comments Sex Female Smoking Status No Information Chief Complaint And Reason For Visit No Information History Of Present Illness Encounter Date Complaint History Of Prese nt Illness No Information Instructions Date Instruction Additional Infor mation No Information Assessments Type Assessment Date No Information
--- OUTSIDE RECORDS SUMMARY | 2024-12-13 00:50 | XMS_ITS | Continuity of Care Document ---
Author Organization [facility] Address [address] [place] [address] Phone Care Team Providers Care Territory Account Representative Name Role Phone Cl Bains MD Unavailable Unavailable Allergies, Adverse Reactions, Alerts Substance Reaction Status Criticality No Known Allergies Active No Inform ation Medications Medication Instructions Dosage Effective Dates (start - stop) Status Comments amitriptyline 25 mg tablet take 1 tablet by oral route every day at bedtime 25 MG - Active avoid driving or operate machines Procedures Procedure Date OFFICE/OUTPATIENT VISIT, EST PREV VISIT, NEW, AGE 18-39 OFFICE/OUTPATIENT VISIT, NEW Advance Directives Directive Yes / No Effective Date File Name No Information Encounters Encounter Description Practice Location Reason(s) For Visit Diagnoses Date Provider Providers Copied on Encounter [facility], [address] [place], [place], [id number], tel:[phone] [facility] No Information [address]. [address], [facility] [place], [place], [id number] , [place]. tel:[phone] Referring Provider: Cl Bains, [address] [facility] [place], [id number]. tel:[phone] OFFICE/OUTPA TIENT VISIT, EST [facility], [address] [place], [place], [id number], tel:[phone] [facility] bili (chief complaint) diarrhea1 (chief complaint) Disorder of bilirubin metabolism, unspecifiedDiarrhea Irritable bowel syndrome with diarrheaAllergy to milk products [address] Small[address]. [address], [place], [place], [id number] , [place]. tel:[phone] Referring Provider: Louie Wang [address], [place], [place], [id number]. tel:[phone] PREV VISIT, NEW, AGE 18-39 [facility], [address], [place], [place], [id number], [place] tel:[phone] [facility] physical1 (chief complaint) LumbagoEncounter for general adult medical exam w abnormal findingsDermatophyt osis of nail [address]. [address], [place], [place], [id number] , [place]. [phone] Referring Provider: Louie Wang [address] [facility] [address], [place], [place], [id number]. tel:[phone] Family History Family Member Type Diagnosis Age At Onset Mother Problem (finding) Alive and well Father Problem (finding) Alive and well Brother Problem (finding) Alive and well Payers Payer name Insurance type Covered constitution party ID Authoriza tion(s) No Information Social History Type Description Quantity Date Captured Comments Alcohol Use Details Unknown Caffeine Use Details Unknown Tobacco Use Status No Information Smoking Status No Information Sex Female Chief Complaint And Reason For Visit No Information Plan Of Treatment Date Type Action Status Referral Ordered: Osvaldo Rocha -[facility]opathic [facility] Osteopathic Physicians : Internal Medicine : Gastroenterology (related to Disorder of bilirubin metabolism, unspecified) ordered Referral Ordered: Allergy and Immunology (related to Allergy to milk products) ordered Referral Referred To: Osvaldo Rocha [address], [phone] Ordered: Referrals: Allopathic & Osteopathic Physicians : Internal Medicine : Gastroenterology. Osvaldo Rocha. Evaluate and treat ordered Referral Ordered: Referrals: Allergy and Immunology. Evaluate and treat ordered Referral Ordered: US EXAM, ABDOM, COMPLETE ordered Referral Ordered: Physical Therapy (related to Lumbago) ordered Referral Referred To: Physical Therapy Ordered: Referrals: Physical Therapy. Evaluate and treat ordered History Of Present Illness Encounter Date Complaint History Of Prese nt Illness diarrhea1 Pt has chronic l ow abdominal bloating, cramp, nonbloody diarrhea for several years Pt has abdominal pain Pt states that period and stress makes it worse .Pt had normal colonoscopy 3 years ago Pt seems to think diary products makes it worse Pt has diarrhea, cramp right after diary products, Pt denies any GERD Pt has infrequently nausea without vomiting. Pt denies any right upper quadrant pain post food. Pt does have lower abdominal cramp post food, worse with fatty meal. bili Pt has high bili . Pt has high indirect bili Pt denies any abd pain or jaundice physical1 Pt needs annual physical. her child is in wheelchair and she has to push it all the time. . She has lower mid and lower back pain for 1-2 months Pt denies any injury. Pt denies any sciatica or any loss of bladder control. Pt denies any leg numbness. Pt denies any other complaints Instructions Date Instruction Additional Infor mation No Information Assessments Type Assessment Date No Information
--- NOTE | 2024-12-13 07:54 | WPDHPUPDATE1 ---
History and Physical Update Update Date/Time: 12/13/24 07:54 History and Physical has been reviewed, including an updated exam of the patient. There are NO changes in the patient's condition. Risks, benefits, and alternatives have been discussed and questions answered. Patient agrees to proceed with procedure.
--- NOTE | 2024-12-13 07:54 | PM.HPGS ---
History of Present Illness History of Present Illness Consent: Risks, benefits, and alternatives have been discussed and questions answered. Patient agrees to proceed with procedure. Chief complaint: menorrhagia Narrative: Vijaya Gil is a 34 year old female with several episodes of prolonged bleeding. The patient had a cycle lasting 19 days in another cycle lasted 17 days. Pelvic ultrasound was normal. It was recommended to undergo D&C hysteroscopy for further evaluation. Risks of infection, bleeding, perforation, and possible pathology are discussed. Patient voices understanding and agrees to proceed. Review of Systems Review of Systems: not repeated day of surgery; patient states no changes in status [facility] Past Medical History Medical History (Updated 12/13/24 @ 07:57 by Crystal Soto MD) History of X2 IBS (irritable bowel syndrome) Surgical History Surgical History H/O section Family History Family History Grandparent Cerebrovascular accident Social History Social History Years smoked: 1 Smoking status: Former smoker Tobacco type: cigarettes Second hand tobacco smoke exposure: No Alcohol intake: current Alcohol use details: Rarely Substance use: never Substance use type: does not use Living arrangements: with family Gender identity (if verbalized by the patient): Female Sexual Orientation (if Verbalized by the Patient): Straight or Heterosexual Spiritual care concerns: No Meds Home Medications and Allergies Home Medications ?Medication ?Instructions ?Recorded ?Confirmed ?Type bupropion HCl 150 mg 24 hr tablet, 150 mg PO DAILY 11/29/24 11/29/24 History extended release ergocalciferol (vitamin D2) 1,250 50,000 unit PO MONTHLY 11/29/24 11/29/24 History mcg (50,000 unit) capsule ketorolac 10 mg tablet 10 mg PO Q6H PRN migraines 11/29/24 11/29/24 History vitamin B complex (B-Complex 1 tablet PO DAILY 11/29/24 11/29/24 History tablet) Allergies Allergy/AdvReac Type Severity Reaction Status Date / Time amitriptyline AdvReac Severe Chest Pain Verified 11/29/24 14:44 prednisone AdvReac Mild Hives Verified 11/29/24 14:44 Exam Const: General: healthy appearing and alert Orientation/consciousness: patient oriented x3 Resp: Effort & Inspection: normal respiratory effort : External Female Exam: normal external appearance Speculum Exam - Vagina: normal appearance of the vagina and normal vaginal discharge Speculum Exam - Cervix: normal appearance of the cervix Bimanual exam- vagina & uterus: uterine size normal and consistency normal Bimanual Exam- Adnexa, other: normal adnexae and No adnexal tenderness Neuro: General: patient oriented x3 Assessment and Plan Assessment and plan (1) Menorrhagia: Code(s): N92.0 - Excessive and frequent menstruation with regular cycle Status: Acute Assessment and Plan: Plan to proceed with D&C hysteroscopy
[2024-12-13 09:10] VITALS: BP 116/78; PULSE 86; RESP 14; TEMP 37; O2SAT 99
[2024-12-13] MEDS: LACTATED RINGERS 1,000 ML 30 ML IV CONT (09:45)
[2024-12-13] MEDS: ACETAMINOPHEN 500 MG TABLET 1000 MG PO (09:50)
[2024-12-13 09:57] VITALS: BMI 21.2
[2024-12-13 10:05] LABS: BEDSIDEPREGUCG Negative (Negative)
--- NOTE | 2024-12-13 10:23 | P.OP_ITS ---
Procedure Note - Detailed Date of Procedure 12/13/24 Pre-op Diagnosis menorrhagia Post-op Diagnosis Same Procedure Performed D&C hysteroscopy Surgeon Crystal Soto MD Anesthesia MAC Findings Uterus sounds to 8cm and appears grossly normal. Description of Procedure The patient is taken to the operating room and the patient placed in the dorsal lithotomy position. She was prepped and draped in the usual sterile fashion. The bivalve speculum was placed in the vagina and the cervix is grasped on the anterior lip with a tenaculum. The uterus sounded to 8cm. The diagnostic hysteroscope is placed and the endometrium appears grossly normal. The hystero scope was removed. The uterus is sharply curetted until a good uterine cry was noted in all areas. All instruments are removed. Sponge, needle, and instrument counts are correct per the OR staff. The patient was awakened from anesthesia and taken to recovery in stable condition. Estimated Blood Loss 5 Drains No Packing No Pathology Yes (Endometrial curettings) Complications No immediate complications Condition Stable Disposition PACU
[2024-12-13 10:24] VITALS: BP 122/69; PULSE 91; RESP 14; O2SAT 100
[2024-12-13 10:50] VITALS: BP 105/66; PULSE 77; O2SAT 100
[2024-12-13 11:20] VITALS: BP 104/65; PULSE 75
[2024-12-13] MEDS: oxyCODONE HCL (*CRX) 5 MG TAB IR PO (11:21)
[2024-12-13 11:50] VITALS: BP 104/60; PULSE 79
== END 2024-12-13 12:00 | disposition home or self-care (01) ==
PROVIDERS: PCP Nurse Practitioner; Visit Provider Obstetrics & Gynecology Gynecology
PROC: 0U5B8ZZ Destruction of Endometrium, Via Natural or Artificial Opening Endoscopic (ICD-10-PCS; CPT 58563; principal; 2024-12-13 11:00)
DX: N92.0 Excessive and frequent menstruation with regular cycle (principal); Z87.891 Personal history of nicotine dependence
CPT/HCPCS: 58558; 88305; A9270; J2250; J2704; J3010; J7120

== ENCOUNTER 2025-06-03 08:52 | Outpatient (CLI) | payer OTHER, SELFPAY ==
--- OUTSIDE RECORDS SUMMARY | 2013-11-29 19:00 | XMS_ITS | Continuity of Care Document ---
Author Organization [facility] Address [address] [place] [address] Phone Care Team Providers Care Flight Service Specialist Name Role Phone Unavailable Unavailable Unavailable Advance Directives Directive Yes / No Effective Date File Name No Information Encounters Encounter Description Practice Location Reason(s) For Visit Diagnoses Date Provider Providers Copied on Encounter [facility], [address], [place], [place], [id number], [place] tel:[phone] [facility] INPATIENT No Information 4 No Information Referring Provider: MARGARET Izquierdo, [address], [place], [address]. tel:[phone] Family History Family Member Type Diagnosis Age At Onset No Information Payers Payer name Insurance type Covered constitution party ID Authoriza tion(s) No Information Social History Type Description Quantity Date Captured Comments Sex Female Smoking Status No Information Chief Complaint And Reason For Visit No Information History Of Present Illness Encounter Date Complaint History Of Prese nt Illness No Information Instructions Date Instruction Additional Infor mation No Information Assessments Type Assessment Date No Information
--- OUTSIDE RECORDS SUMMARY | 2024-08-26 05:40 | XMS_ITS | Continuity of Care Document ---
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 [address] [facility], [place], [address], [place]. tel:[phone] Referring Provider: Kraig Miller, [address] [place] [address], [place], [address]. tel:[phone] [facility], [address] [place] [address], [id number], tel:[phone] [facility] [place] No Information [address] [place]. [address] [facility], [place], [address], [place]. tel:[phone] Referring Provider: Kraig Miller, [facility] [facility] [address], [place], [address]. tel:[phone] [facility], [address] [place] [address], [id number], tel:[phone] [facility] Location No Information 4 [facility] Prov. . Referring Provider: Kraig Miller, [address] [place] [address], [place], [address]. tel:[phone] Family History Family Member Type Diagnosis Age At Onset Problem No family history of Rhiniti s Son Problem Asthma Brother Problem (finding) Asthma Payers Payer name Insurance type Covered democrat ID Bhavana ochoa(s) [facility] CI [id number] Social History Type Description Quantity Date Captured [...] (noticed rash after eating a sandwich at [facility]) or with soft drinks. She notes she [...] vitamin B12 deficiency, vitamin D deficiencyPSH: section [id number] Allergies: NKDAAmitryptiline - h eart palpitations / [...] (noticed rash after eating a sandwich at [facility]) or with soft drinks. She notes she [...] vitamin B12 deficiency, vitamin D deficiencyPSH: section [id number] Allergies: NKDAAmitryptiline - heart palpitations / anxiety [...]
--- OUTSIDE RECORDS SUMMARY | 2025-06-03 09:01 | XMS_ITS | Clinical Summary ---
Author Organization [facility] Address [address] [place] [address] Care Team Providers Care Offset Printing Pressmen Name Role Phone Unavailable Primary Care Provider Unavailabl e Allergies No known active allergies Medications [id number] ( VITAMIN) Oral TabIndications:M issed menses [...] 2:22 PM CDT Height 162.6 cm (5' 4) 11/30/2013 2:22 PM CDT Body Mass Index 24.89 11/30/2013 2:22 PM CDT Plan of Treatment Health Maintenance Due Date Last Done Comments HEPATITIS B VACCINES (1 of 3 - 19+ 3-dose series) 11/2008 HPV/Cotest (21-29) 2010 HPV VACCINES (1 - 3-dose SCDM series) 2016 CERVICAL CANCER SCREENING 12/10/2019 HPV/Cotest (30-65) 12/10/2019 PAP SMEAR 12/10/2019 DTAP/TDAP/TD VACCINES (2 - Td or Tdap) 09/11/2022 INFLUENZA VACCINE (#1) 2025 Insurance BLUE ACCESS CHOICE Advance Directives For more information, please contact: [phone] * Full Code (Latest Code Status on File) Date Activated Date Inactivated Comments 11/30/2013 11:56 PM 12/04/2013 3:26 PM * Full Code Date Activated Date Inactivated Comments 11/30/2013 6:01 PM 11/30/2013 11:56 PM * Full Code Date Activated Date Inactivated Comments 11/08/2013 11:36 PM 11/10/2013 2:58 PM
--- OUTSIDE RECORDS SUMMARY | 2025-06-03 09:01 | XMS_ITS | Clinical Summary ---
Author Organization [facility] Address [address] [place] [address] Care Team Providers Care Director Of Student Financial Services Name Role Phone Kraig Miller Primary Care Provider Allergies Active Allergy Reactions Criticality Noted Date Comments Amitriptyline Palpitations Low 10/30/2021 Metoclopramide Other (See comments) Medium 12/25/2024 Feeling of twitching, some irritability Prednisone Hives Medium 10/30/2021 Medications ergocalciferol (VITAMIN D) 50,000 unit capsule Take 1 capsule (50,000 Units total) by mouth 05/29/2023 Active cyanocobalamin (Vitamin B-12) 1,000 mcg/mL injection 07/24/2023 Active buPROPion XL (WELLBUTRIN XL) 150 mg 24 hr tablet Take 1 tablet (150 mg total) by mouth every morning 90 tablet 4 08/05/2023 Active ketorolac (TORADOL) 10 mg tablet Take 1 tablet (10 mg total) by mouth 08/18/2024 Active Active Problems Problem Noted Date Diagnosed Date Symptomatic PVCs 11/13/2023 Serum calcium elevated 09/16/2023 Generalized anxiety disorder 08/05/2023 Assessment & Plan (09/16/2023 10:16 AM EXPANDED DUTY DENTAL ASSISTANT): This is now in excellent control with no SI HI we agree to continue medications follow-up in 3 months. Open door open line Assessment & Plan (08/05/2023 3:12 PM EXPANDED DUTY DENTAL ASSISTANT): This is mild with no SI HI we discussed numerous options we agreed to try Wellbutrin, she has not had a history of seizures we did discuss the med use potential side effects and we are going to follow-up in 6 weeks Sore throat 06/14/2023 Assessment & Plan (06/14/2023 11:39 AM CDT): Rapid strep negative Throat culture pending MA had difficulty obtaining swabs [facility] positive for strep, patient currently symptomatic Will treat for strep with amoxicillin Warm salt water gargles Tylenol (acetaminophen) or Advil/Motin (ibuprofen) as needed per package directions for aches/pains. Change toothbrush on 3rd day of antibiotics Avoid sharing food/drinks and close contact Frequent warm/cool liquids Rosacea 12/05/2022 Assessment & Plan (12/05/2022 4:03 PM CDT): Trial of meds Visit for suture removal 12/17/2021 Rash 12/11/2021 Assessment & Plan (12/11/2021 9:13 AM CDT): From a the sutures I am going to order some triamcinolone cream she does tolerate topical steroid Skin tag 11/28/2021 Assessment & Plan (11/28/2021 1:59 PM CDT): Verbal permission received 1 skin tag frozen with liquid nitrogen skin care discussed Suppression of menstruation 10/30/2021 Atypical nevi 10/30/2021 Assessment & Plan (12/05/2022 3:59 PM CDT): Annual mole map Assessment & Plan (12/06/2021 9:16 AM CDT): Annual mole map Assessment & Plan (10/30/2021 1:25 PM EXPANDED DUTY DENTAL ASSISTANT): Patient has a couple abnormal moles we are going to schedule biopsy Feeding drive 10/30/2021 Hair thinning 10/30/2021 Fatigue 10/30/2021 Routine general medical exam ination at a health care facility 10/29/2021 Assessment & Plan (12/05/2022 3:59 PM CDT): HEALTHCARE MAINTENANCE updated Assessment & Plan (10/30/2021 1:25 PM EXPANDED DUTY DENTAL ASSISTANT): Healthcare maintenance updated Loss of appetite 12/28/2020 Assessment & Plan (10/30/2021 1:25 PM EXPANDED DUTY DENTAL ASSISTANT): This is new an abnormal I am going to get some routine labs she is going to keep a food diary and were going to follow Irritable bowel syndrome with diarrhea 0 Assessment & Plan (09/16/2023 10:16 AM EXPANDED DUTY DENTAL ASSISTANT): This is controlled with diet Assessment & Plan (08/14/2022 3:37 PM EXPANDED DUTY DENTAL ASSISTANT): This was properly worked up by GI, patient did have a colonoscopy. And she did well with no side effects on this meds for 8 months. She personally stop the med could she thought she was doing well and wanted to see how she did without it. I am willing to start her on the lower dose she does understand the med use potential side effects she really wants to try this she will update me in 4 weeks we discussed signs and symptoms that would warrant stopping it and calling me Assessment & Plan (10/30/2021 1:25 PM EXPANDED DUTY DENTAL ASSISTANT): This is chronic and fairly stable with diet will continue to follow Palpitations 06/14/2020 Assessment & Plan (09/16/2023 10:16 AM EXPANDED DUTY DENTAL ASSISTANT): Patient is already seen Cardiology in his wearing any event monitor and she was asymptomatic during appointment Assessment & Plan (12/06/2021 9:16 AM CDT): These are currently controlled will continue to follow Abdominal bloating 03/02/2020 Chronic diarrhea 03/02/2020 Assessment & Plan (12/05/2022 3:59 PM CDT): This is improved Elevated bilirubin 03/02/2020 Assessment & Plan (10/30/2021 1:25 PM EXPANDED DUTY DENTAL ASSISTANT): This is ongoing I am going to order some new bili labs to re-evaluate Frequent UTI 11/02/2015 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 11/02/2015 Labor and delivery indication for care or interv ention 11/30/2013 Threatened labor, antepartum 11/08/2013 Twin 05/12/2013 Immunizations Immunization Administration Dates Next Due Influenza, Unspecified 08/16/2023,2022(Deferred: Patient decision),08/14/2022(Deferred: Patient Refused),08/07/2022(Deferred: Patient decision),08/05/2022(Deferred: Patient decision),06/29/2021 Tdap 09/08/2015,09/11/2012 Surgical History Surgery Date Site/Laterality Comments SECTION Family History Medical History Relation Name Comments No Known Problems Father No Known Problems Mother Relation Name Status Comments Father Alive Mother Alive Social History Tobacco Use Types Packs/Day Years Used Date Smoking Tobacco: Former Tobacco Cessation:Counseling Given: Not Answered AUDIT-C Answer Date Recorded Q1: How often do you have a drink containing alc ohol? Monthly or less 09/16/2023 Q2: How many drinks containi ng alcohol do you have on a typical day when you are drinking? 1 or 2 09/16/2023 Frequency of Binge Drinking Not on file 05/2024 PHQ-2 Answer Date Recorded PHQ-2 Total Score (If total score is 3 or more points, staff should administer the PHQ-9) 0 12/05/2022 Personal Safety Answer Date Recorded Have you ever been in or are you currently in a harmful physical or emotional relationship or is someone making you feel afraid or unsafe? Denies 12/24/2024 Comments No Sex and Gender Information Value Date Recorded Sex Assigned at Not on file Legal Sex Female 12:51 AM EXPANDED DUTY DENTAL ASSISTANT Gender Identity Not on file Sexual Orientation Not on file Obstetrics History Last Filed Vital Signs Vital Sign Reading Time Taken Comments Blood Pressure 125/85 12/24/2024 9:30 PM CDT Pulse 113 12/24/2024 11:05 PM CDT Temperature 36.1 C (97 F) 12/24/2024 8:41 PM CDT Respiratory Rate 16 12/24/2024 8:41 PM CDT Oxygen Saturation 96% 12/24/2024 11:05 PM CDT Inhaled Oxygen Concentration - - Weight 59.1 kg (130 lb 4.7 oz) 12/24/2024 8:41 P M CDT Height 165.1 cm (5' 5) 12/24/2024 8:41 PM CDT Body Mass Index 21.68 12/24/2024 8:41 PM CDT Plan of Treatment Health Maintenance Due Date Last Done Comments Cervical Cancer Screening 1989 Hepatitis C Screening 1989 Hepatitis B Screening 12/10/2007 HPV Vaccines (1 - 3-dose SCDM series) 2016 Depression Screening 12/06/2023 12/05/2022, 10/30/2021 Regular Well Visit/Exam 18-64 12/06/2023 12/05/2022, 10/30/2021 Covid-19 Vaccine ( season) 2025 04/07/2021 Influenza Vaccine (#1) 2025 , 06/29/2021 DTaP/Tdap/Td Vaccine (3 - Td or Tdap) 09/08/2025 09/08/2015, 09/11/2012 Pneumococcal vaccine <65 Aged Out No longer eligible based on patient's age to complete this topic Varicella Vaccines Discontinued Insurance [facility] [place] [id number] [place] [address] [facility] CHOICE PLUS Advance Directives For more information, please contact: [phone] Documents on File Type Date Recorded 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
--- OUTSIDE RECORDS SUMMARY | 2025-06-03 09:02 | XMS_ITS | Clinical Summary ---
Author Organization [facility] Address [address] [place] [address] Care Team Providers Care Test Facility Engineer Name Role Phone Cl Bains MD Primary Care Provider [phone] Cl Bains MD Unavailable Source Comments [facility],non-owned Affiliates and Associated Physician Practices is amultiple site organization consisting of ambulatory clinics and hospital sitesin [place], [place], [place] and [place]. This disclosure is being madepursuant to the Care Everywhere program and may not contain all information available regarding this patient. Last updated 18.[facility] [employer] Allergies No known active allergies Medications * Be aware that medications may not be up to date on this document. Alwaysverify current medications with the patient. oxycodone-aceta minophen (PERCOCET) 5-325 MG tablet Take 1 Tab by mouth every 4 hours as needed for Pain. 20 Tab 0 09/11/2012 Active ondansetron (ZOFRAN) 4 MG tablet Take 1 Tab by mouth every 4 hours as needed for Nausea/Vomit ing. 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 Gender Identity Not on file Sexual Orientation [...] 1:49 PM CDT Height 165.1 cm (5' 5) 03/02/2020 1:49 PM CDT Body Mass Index 18.47 03/02/2020 1:49 PM CDT Plan of Treatment Health Maintenance Due Date Last Done Comments HIV SCREENING 2004 HEPATITIS C SCREENING 12/05/2007 HEPATITIS B VACCINE (1 of 3 - 19+ 3-dose series) 2008 PAP SMEAR 2010 HPV VACCINE (1 - 3-dose SCDM series) 2016 DTAP/TDAP/TD VACCINES (2 - T d or Tdap) 09/11/2022 09/11/2012 DEPRESSION SCREENING 09/08/2024 COVID-19 VACCINE (2023-2 5 season) 2025 INFLUENZA VACCINE (#1) 2025 ZOSTER VACCINE (1 of 2) 12/10/2039 [...] General On track( 020 2:02 PM CDT) No Vijaya Marc RN Note: Expected end date: Ongoing Interventions: Take all medications as prescribed Let your doctor know right away about any changes in your medications Make sure to request a refill of your medication at least one week prior to your last dose Insurance [employer] NO INSURANCE Member Subscriber Plan / Payer (Ef fective for All Dates) Name:Vijaya Vasquez Member ID:Not on file Relation to Subscriber:Not on file Name:VIJAYA VASQUEZ Subscriber ID:Not on file (Home) Address: [address] [place] [address] [place] [address] Payer ID:Not on file Group ID:Not on file Type:Self Pay Address: [facility] [place] [address] [facility] Care Teams Test Facility Engineer Relationship Specialty Start Date End Date Cl Bains MD PCP - General 12/29/20 Cl Bains MD [address] [place] [address] [place] [address] 10/12/19
--- OUTSIDE RECORDS SUMMARY | 2025-06-03 09:02 | XMS_ITS | Clinical Summary ---
Author Organization [facility] Address [address] [place] [id number] Care Team Providers Care On Site Soil Evaluator Name Role Phone Kraig Miller PA-C Primary Care Provider [phone] Social History Tobacco Use Types Packs/Day Years Used Date Smoking Tobacco: Never Assessed Comments Unknown Sex and Gender Information Value Date Recorded Sex Assigned at Not on file Legal Sex Female 2:20 PM CDT Gender Identity Not on file Sexual Orientation Not on file Plan of Treatment Upcoming Encounters Date Type Department Care Team (Late st Contact Info) Description 06/24/2025 8:00 AM CDT Office Visit [facility]pec[facility] - [facility] [address] [facility], [address] [place] [phone] Dawna Khan NP [address] [facility] [address] [place] [id number] Health Maintenance Due Date Last Done Comments Cervical Cancer Screening Pa p Smear (Age 30 to 64) Every 3 Years 1989 Annual Physical 1992 Hepatitis C 12/10/2007 DTaP, Tdap and Td Vaccines ( 1 - Tdap) 2008 Hepatitis B Vaccines (1 of 3 - 19+ 3-dose series) 2008 HPV Vaccines (1 - 3-dose SCD M series) 2016 Cervical Cancer Screening Pa p with HPV Testing (Age 30 to 64) Every 5 Years 12/10/2019 Cervical Cancer Screening with HPV 12/10/2019 PHQ-2 (Physician [place]) 09/08/2024 COVID-19 Vaccine (2023-2 5 season) 2025 Meningococcal B Vaccine Aged Out No l onger eligible based on patient's age to complete this topic Meningococcal Vaccine Aged Out No gloria eugenio eligible based on patient's age to complete this topic Pneumococcal Vaccine: Pediat rics (0 to 5 Years) and At-Risk Patients (6 to 49 Years) Aged Out No longer eligible b ased on patient's age to complete this topic RSV Immunizations Under 20 Months Aged Out No longer eligible based on patient's age to complete this topic Insurance [employer] Care Teams On Site Soil Evaluator Relationship Specialty Start Date End Date Kraig Miller PA-C [address] [place] [id number] PCP - General PHYSICIAN EXPLOITATION ANALYST 01/19/25
--- OUTSIDE RECORDS SUMMARY | 2025-06-03 09:02 | XMS_ITS | Data Portability ---
[facility] Address [address] [facility] [place] [address] Assessment No assessment recorded. Plan of Treatment Reminders Order Date Submit Date Provider Last Modified By Organization Details Last Modified Time Details Appointments ANY 15 2024 10:00A M MIKEY Licona Not available Not available Not available Lab vitamin D, 25-hydro xy, total, serum 2024 025 [employer] [facility], [address], [address], 02/20/2025 10:00:07 TSH + free T4, serum 2024 025 [employer] [facility], [address], [address], 02/20/2025 10:00:04 CMP, serum or plasma 2024 025 [employer] [facility], [facility] [address], [address], 02/20/2025 10:00:04 CBC w/ auto diff 2024 025 [employer] [facility], [address], [address], 02/20/2025 10:00:05 vitamin B12, serum 2024 025 [employer] [facility], [address], [address], 02/20/2025 10:00:06 Referral allergis t referral - possible food allergy/ eczema 2023 024 [facility], [address], [place], [address], 08/26/2024 14:12:45 Procedures None recorded . Surgeries None recorded . Imaging None recorded . Medication Orders Imitrex 50 mg tablet 2024 025 [facility][id number], [address] [facility], [place], [place], [id number], 02/16/2025 10:51:12 ergocalc iferol (vitamin D2) 1,250 mcg (50,000 unit) capsule 2024 025 [facility] #46641, [address] [place], [place], [id number], 02/16/2025 10:44:47 ketorola c 30 mg/mL injectio n syringe 2024 025 [email or web address] [facility] #00604, [address] [place], [place], [id number], 02/16/2025 10:35:08 Ubrelvy 100 mg tablet 2024 025 [facility] #55135, [address] [place], [place], [id number], 02/16/2025 10:44:21 ketorola c 10 mg tablet 2023 024 [facility] #26228, [address] [place], [place], [id number], 08/18/2024 10:42:50 ketorola c 30 mg/mL (1 mL) injectio n solution [address] [facility] #[id number], [address] [facility], [place], [place], [id number], 12/20/2024 16:54:57 Patient TargetsNo targets recorded. Patient InstructionsNo instructions recorded. 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 Referral for Eczem a possible food allergy/eczema Referring Physician: Kraig Miller, Family Medicine, Encounter Date: 08/18/2024 Results Created Date Observation Date Name Description Value Unit Range Abnormal Flag Note LastModifiedBy Organization Detail LastModifiedTime 02/20/20 25 02/20/2025 TSH+F REE T4 TSH 1.56 mIU/L normal Refer ence Range > or = 20 Years 0.40- 4.50 Pregn salbador Range s First trime ster 0.26- 2.66 Secon d trime ster 0.55- 2.73 Third trime ster 0.43- 2.91 Not Available [address], [address], 02/20/2025 10:00:03 02/20/20 25 02/20/2025 TSH+F REE T4 T4, free 1.2 NG/dL 0.8-1. 8 normal Not Available [address], [address], 02/20/2025 10:00:03 02/20/20 25 02/20/2025 COMPR EHENS EVE METAB OLIC PANEL glucose 91 mg/dL 65-99 normal Fasti ng refer ence inter lorena Not Available [address], [address], 02/20/2025 10:00:04 02/20/20 25 02/20/2025 COMPR EHENS EVE METAB OLIC PANEL urea nitrogen (BUN) 9 mg/dL 7-25 normal Not Available [address], [address], 02/20/2025 10:00:04 02/20/20 25 02/20/2025 COMPR EHENS EVE METAB OLIC PANEL creatinine 0.56 mg/dL 0.50-0 .97 normal Not Available [address], [address], 02/20/2025 10:00:04 02/20/20 25 02/20/2025 COMPR EHENS EVE METAB OLIC PANEL eGFR 122 mL/mi n/1.7 3m2 > or = 60 normal Not Available [address], [address], 02/20/2025 10:00:04 02/20/20 25 02/20/2025 COMPR EHENS EVE METAB OLIC PANEL BUN/creatini ne ratio SEE NOTE: (calc ) 6-22 Not Repor roby: BUN and Creat inine are withi n refer ence range . Not Available [address], [address], 02/20/2025 10:00:04 02/20/20 25 02/20/2025 COMPR EHENS EVE METAB OLIC PANEL sodium 138 mmol/ L 135-14 6 normal Not Available [address], [address], 02/20/2025 10:00:04 02/20/20 25 02/20/2025 COMPR EHENS EVE METAB OLIC PANEL potassium 4.1 mmol/ L 3.5-5. 3 normal Not Available [address], [address], 02/20/2025 10:00:04 02/20/20 25 02/20/2025 COMPR EHENS EVE METAB OLIC PANEL chloride 103 mmol/ L 98-110 normal Not Available [address], [address], 02/20/2025 10:00:04 02/20/20 25 02/20/2025 COMPR EHENS EVE METAB OLIC PANEL carbon dioxide 25 mmol/ L 20-32 normal Not Available [address], [address], 02/20/2025 10:00:04 02/20/20 25 02/20/2025 COMPR EHENS EVE METAB OLIC PANEL calcium 9.9 mg/dL 8.6-10 .2 normal Not Available [address], [address], 02/20/2025 10:00:04 02/20/2002/20/2025 COMPR EHENS EVE METAB OLIC PANEL protein, total 7.7 g/dL 6.1-8. 1 normal Not Available [address], [address], 02/20/2025 10:00:04 02/20/20 25 02/20/2025 COMPR EHENS EVE METAB OLIC PANEL albumin 5.0 g/dL 3.6-5. 1 normal Not Available [address], [address], 02/20/2025 10:00:04 02/20/20 25 02/20/2025 COMPR EHENS EVE METAB OLIC PANEL globulin 2.7 g/dL_ (calc ) 1.9-3. 7 normal Not Available [address], [address], 02/20/2025 10:00:04 02/20/20 25 02/20/2025 COMPR EHENS EVE METAB OLIC PANEL albumin/glob ulin ratio 1.9 (calc ) 1.0-2. 5 normal Not Available [address], [address], 02/20/2025 10:00:04 02/20/20 25 02/20/2025 COMPR EHENS EVE METAB OLIC PANEL bilirubin, total 1.7 mg/dL 0.2-1. 2 high Not Available [address], [address], 02/20/2025 10:00:04 02/20/20 25 02/20/2025 COMPR EHENS EVE METAB OLIC PANEL alkaline phosphatase 47 U/L 31-125 normal Not Available [address], [address], 02/20/2025 10:00:04 02/20/20 25 02/20/2025 COMPR EHENS EVE METAB OLIC PANEL AST 20 U/L 10-30 normal Not Available [address], [address], 02/20/2025 10:00:04 02/20/20 25 02/20/2025 COMPR EHENS EVE METAB OLIC PANEL ALT 29 U/L 6-29 normal Not Available [address], [address], 02/20/2025 10:00:04 02/20/20 25 02/20/2025 CBC (INCL UDES DIFF/ PLT) white blood cell count 5.6 thous and/u L 3.8-10 .8 normal Not Available [address], [address], 02/20/2025 10:00:05 02/20/20 25 02/20/2025 CBC (INCL UDES DIFF/ PLT) red blood cell count 4.59 charity on/uL 3.80-5 .10 normal Not Available [address], [address], 02/20/2025 10:00:05 02/20/20 25 02/20/2025 CBC (INCL UDES DIFF/ PLT) hemoglobin 13.5 g/dL 11.7-1 5.5 normal Not Available [address], [address], 02/20/2025 10:00:05 02/20/20 25 02/20/2025 CBC (INCL UDES DIFF/ PLT) hematocrit 41.6 % 35.0-4 5.0 normal Not Available [address], [address], 02/20/2025 10:00:05 02/20/2002/20/2025 CBC (INCL UDES DIFF/ PLT) MCV 90.6 fL 80.0-1 00.0 normal Not Available [address], [address], 02/20/2025 10:00:05 02/20/2002/20/2025 CBC (INCL UDES DIFF/ PLT) MCH 29.4 pg 27.0-3 3.0 normal Not Available [address], [address], 02/20/2025 10:00:05 02/20/2002/20/2025 CBC (INCL UDES DIFF/ PLT) MCHC 32.5 g/dL 32.0-3 6.0 normal For adult s, a sligh t decre ase in the calcu lated MCHC value (in the range of 30 to 32 g/dL) is most likel y not clini leslie signi briseyda t; les er, it shoul d be inter prete d with cauti on in [facility] n with other red cell broderick eters and the patie nt's clini goran condi tion. Not Available [address], [address], 02/20/2025 10:00:05 02/20/2002/20/2025 CBC (INCL UDES DIFF/ PLT) RDW 12.0 % 11.0-1 5.0 normal Not Available [employer] [address], [address], 02/20/2025 10:00:05 02/20/2002/20/2025 CBC (INCL UDES DIFF/ PLT) platelet count 357 thous and/u L 140-40 0 normal Not Available [address], [address], 02/20/2025 10:00:05 02/20/20 25 02/20/2025 CBC (INCL UDES DIFF/ PLT) MPV 11.0 fL 7.5-12 .5 normal Not Available [address], [address], 02/20/2025 10:00:05 02/20/20 25 02/20/2025 CBC (INCL UDES DIFF/ PLT) absolute neutrophils 3758 cells /uL 1500-7 800 normal Not Available [address], [address], 02/20/2025 10:00:05 02/20/2002/20/2025 CBC (INCL UDES DIFF/ PLT) absolute lymphocytes 1333 cells /uL 850-39 00 normal Not Available [address], [address], 02/20/2025 10:00:05 02/20/20 25 02/20/2025 CBC (INCL UDES DIFF/ PLT) absolute monocytes 370 cells /uL 200-95 0 normal Not Available [address], [address], 02/20/2025 10:00:05 02/20/20 25 02/20/2025 CBC (INCL UDES DIFF/ PLT) absolute eosinophils 90 cells /uL 15-500 normal Not Available [address], [address], 02/20/2025 10:00:05 02/20/2002/20/2025 CBC (INCL UDES DIFF/ PLT) absolute basophils 50 cells /uL 0-200 normal Not Available [address], [address], 02/20/2025 10:00:05 02/20/20 25 02/20/2025 CBC (INCL UDES DIFF/ PLT) neutrophils 67.1 % normal Not Available [address], [address], 02/20/2025 10:00:05 02/20/20 25 02/20/2025 CBC (INCL UDES DIFF/ PLT) lymphocytes 23.8 % normal Not Available [address], [address], 02/20/2025 10:00:05 02/20/20 25 02/20/2025 CBC (INCL UDES DIFF/ PLT) monocytes 6.6 % normal Not Available [facility] [address], [address], 02/20/2025 10:00:05 02/20/20 25 02/20/2025 CBC (INCL UDES DIFF/ PLT) eosinophils 1.6 % normal Not Available [address], [address], 02/20/2025 10:00:05 02/20/20 25 02/20/2025 CBC (INCL UDES DIFF/ PLT) basophils 0.9 % normal Not Available [address], [address], 02/20/2025 10:00:05 02/20/20 25 02/20/2025 VITAM IN B12 vitamin B12 643 pg/mL 200-11 00 normal Not Available [address], [address], 02/20/2025 10:00:06 02/20/20 25 02/20/2025 VITAM IN D,25- OH,TO MARIELLE,I A vitamin D,25-oh,tota l,ia 24 NG/mL 30-100 low Vitam in D Statu s 25-OH Vitam in D: Defic iency : <20 ng/mL Insuf ficie ncy: 20 - 29 ng/mL Optim al: > or = 30 ng/mL For 25-OH Vitam in D testi ng on patie nts on D2-temple pplem entat ion and patie nts for whom quant itati on of D2 and D3 fract ions is requi red, the [employer] Assur eD(TM ) 25-OH VIT D, (D2,D 3), LC/MS /MS is recom kelsey d: order code 75506 (toi ents >2yrs ). See Note 1 Note 1 For addit ional infor preeti parker refer to http: //[facility] jordana Arenas stDia gnost ics.c om/fa q/FAQ 199 (This link is being provi ded for infor lidia hairston/ educa manuel blanco purpo ses only. ) Not Available [address], [address], 02/20/2025 10:00:07 Result Notes None recorded. 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 RAMESH [place], [place] - [facility] 5 16:55:40 False labor before 37 completed weeks of gestation 314538891015 94693 Active 2013 RAMESH [place] [facility] [place] 16:55:40 Delivery finding 383380575 Active 2013 RAMESH [place] [facility] 5 16:55:40 Hereditar y disease in family possibly affecting fetus 86095100 Active 2015 RAMESH [place] [facility] [place] 16:55:40 Recurrent urinary tract infection 392707771 Completed 201511/02/2015 RAMESH [place] [facility] 5 14:48:37 High risk 69893474 Active 2015 RAMESH [place] [facility] 5 16:55:40 Abdominal bloating 189819717 Active 2019 RAMESH [place] [facility] 5 16:55:40 Chronic diarrhea 122249142 Completed 201903/02/2020 RAMESH [place] [facility] 14:48:37 Bilirubin level above reference range 25106142 Active 2019 Topher Winn [place] [facility] 16:55:40 Palpitati ons 52646512 Completed 201906/14/2020 Topher Winn [place] [facility] 14:48:37 Irritable bowel syndrome with diarrhea 201656294 Active 2019 RAMESH [place] [facility] 16:55:40 Loss of appetite 13714167 Active 2020 RAMESH [place] [facility] 16:55:40 Patient encounter status 627449612 Completed 202110/29/2021 RAMESH [place] [facility] 14:48:37 Suppressi on of menstruat ion 236804774 Active 2021 RAMESH [place] [facility] 16:55:40 Dysplasti c nevus of skin 564504360 Active 2021 RAMESH [place] [facility] 16:55:40 Loss of hair 556402668 Active 2021 RAMESH [place] [facility] 16:55:40 Hungry 91355471 Active 2021 [place] RAMESH [place] [facility] 16:55:40 Fatigue 86100361 Active 2021 RAM[place] [facility] 16:55:40 Skin tag 920230679 Active 2021 [place] RAMESH [place] [facility] 16:55:40 Eruption 125932944 Active 2021 RAMESH [place] [facility] 16:55:40 Removal of sutures done 457331057081 107 Active 2021 Topher RAMESH [place] [facility] 5 16:55:40 Rosacea 699756061 Active 2022 Topher Winn [place] [facility] 5 16:55:40 Sore throat 107871922 Active 2022 Topher Winn [place] [facility] [place] 16:55:40 Generaliz ed anxiety disorder 14169735 Completed 202208/05/2023 Topher Winn [place] [facility] 5 14:48:37 Hypercalc emia 10891965 Active 2023 Topher Winn [place] [facility] 5 16:55:40 Multiple premature ventricul ar complexes 096564118 Completed 202311/13/2023 Topher Winn [place] [facility] 5 14:48:37 Vitamin B12 deficienc y (non anemic) 74473475 Active 2023 MIKEY Licona Attn: Accountin g[address] [place], [address], [place] - [facility] 4 06:54:42 Vitamin D deficienc y 28042263 Active 2023 MIKEY Licona Attn: Accountin g[address] [place], [address], [place] [facility] 4 06:54:43 Irritable bowel syndrome 99357426 Active 2023 MIKEY Licona Attn: Accountin g[address] [place], [address], [place] [facility] 4 06:54:44 Adult health examinati on Active 2023 MIKEY Licona Attn: Accountin g,[address] [place], [address], [place] [facility] 4 06:54:47 Migraine 24779244 Active 2023 MIKEY Licona Attn: Accountin g,[address] [place], [address], [facility] - [facility] 4 10:41:04 Problem Notes None recorded. Medical Equipment None Reported. Allergies Allergen ID Allergen Name Allergen Category Reaction Reaction Severity Criticality Documentation Date Start Date Code Code System Note Provider Name and Address Organization Details Recorded Time 471692 prednison e medicatio n hives Not available high 08/17/20242021 8640 RxNorm [facility] [place] - [facility] 5 16:54:32 269029 amitripty line medicatio n palpitati ons Not available [facility] 08/17/20242021 704 RxNorm [facility] [place] - [facility] 5 16:54:29 003009 metoclopr amide Not available other Not available high 01/07/20252024 6915 RxNorm Feeli ng of twitc salma, some irrit abili ty [facility], [place] - [facility] 5 14:48:05 Medications Name Sig Start Date Stop Date Status Note LastModified by Organization Details LastModified Time fluconazole 150 mg tablet 12/20 completed Not Available Not Available Not Available metronidazo le 0.75 % (37.5 mg/5 gram) vaginal gel APPLY VAGINALLY EVERY NIGHT FOR 5 DAYS 12/20 completed Not Available Not Available Not Available sumatriptan 50 mg tablet t1 qd prn migraine, may repeat in 2 hours active Not Available Not Available No t Available ketorolac 30 mg/mL (1 mL) injection solution Inject 1 mL by intramusc ular route. 12/20 completed Not Available Not Available Not Available ketorolac 10 mg tablet TAKE 1 TABLET BY MOUTH EVERY 6 HOURS NEEDED FOR MIGRAINES active Not Available Not Available No t Available cyanocobala min (vit B-12) 1,000 mcg/mL injection solution 12/20 completed Not Available Not Available Not Available clindamycin 2 % vaginal cream INSERT 1 APPLICATO RFUL VAGINALLY AT BEDTIME FOR 7 DAYS 12/20 completed Not Available Not Available Not Available ergocalcife rol (vitamin D2) 1,250 mcg (50,000 unit) capsule TAKE 1 CAPSULE BY MOUTH EVERY WEEK active Not Available Not Available No t Available amoxicillin 875 mg-frederick tracy clavulanate 125 mg tablet TAKE 1 TABLET BY MOUTH TWICE DAILY FOR 10 DAYS 12/20 completed Not Available Not Available Not Available bupropion HCl XL 150 mg 24 hr tablet, extended release 12/20 completed Not Available Not Available Not Available ketorolac 30 mg/mL injection syringe Inject 30 mL every 6 hours by intramusc ular route. 02/16 completed Not Available Not Available Not Available levonorgest rel 20.4 mcg/24 hr (up to 8 yrs) 52 mg intrauterin e device Take by intrauter ine route. 08/18 completed Not Available Not Available Not Available Slynd 4 mg (28) tablet Take 1 tablet every day by oral route. active Not Available Not Available No t Available Ubrelvy 100 mg tablet Take 1 tablet every day by oral route as needed, for migrain. 02/16 completed Not Available Not Available Not Available Vitals Date Recorded Body height Body mass index (BMI) Body weight Oxygen saturation Oxygen saturation in Arterial blood by Pulse oximetry Heart rate Pain severity - 0-10 verbal numeric rating [Score] - Reported Systolic And Diastolic Provider Name and Address Organization Details Last Updated DateTime 5 165.1 cm 21.7 kg/m2 99844.7 6 g 99 % 99 % 104 /min 8 114/64 mm[Hg] [facility] 5 17:00:41 Date Recorded Body height Body mass index (BMI) Body weight Oxygen saturation Oxygen saturation in Arterial blood by Pulse oximetry Heart rate Systolic And Diastolic Provider Name and Address Organization Details Last Updated DateTime 5 165.1 cm 20.3 kg/m2 00802.2 7 g 99 % 99 % 83 /min 112/62 mm[Hg] Dionna Samuel [facility] 5 10:36:56 Date Recorded Body height Body mass index (BMI) Body weight Oxygen saturation Oxygen saturation in Arterial blood by Pulse oximetry Heart rate Pain severity - 0-10 verbal numeric rating [Score] - Reported Body temperature Systolic And Diastolic Provider Name and Address Organization Details Last Updated DateTime 4 165.1 cm 21 kg/m2 38031.0 9 g 98 % 98 % 89 /min 4 98.6 [degF] 108/80 mm[Hg] RAMESH Pineda - [facility] 4 10:20:50 Social History Question Answer Notes LastModified by Organizat ion Details LastModified Time Tobacco Smoking Status Former Smoker quit 2012 RAMESH [place] [facility] 12/20/2024 16:57:15 What Is Your Level Of Caffeine Consumption? Moderate Information not available 12/20/2024 What Was The Date Of Your Most Recent Tobacco Screening? 02/16/2025 [email or web address] Information not available 02/16/2025 At What Age Did You Start Smoking Tobacco? 21 Information not available 12/20/2024 How Much Tobacco Do You Smoke? No Information not available 12/20/2024 Has Tobacco Cessation Counseling Been Provided? No [email or web address] Information not available 02/16/2025 How Many Years Have You Smoked Tobacco? 1 Information not available 12/20/2024 Sex: Female Functional Status Question Answer Note LastModified by Organizat ion Details LastModified Time Do you use any illicit or recreational drugs? No Information not available 12/20/2024 Do you or have you ever used any other forms of tobacco or nicotine? No Information not available 12/20/2024 What is your level of alcohol consumption? Occasional Information not available 12/20/2024 Mental Status None recorded. Family History Nothing Reported. Medical History No medical history recorded. Gynecological HistoryNo gynecological history recorded. Obstetrics History GPAL:G 0 P 0 0 0 0 Immunizations Vaccine Type Date Status Note Provider Nam e and Address Organization Details Recorded Time influenza, unspecified formulation 06/29/2021 completed RAMESH [place] [facility] 12/20/2024 16:55:46 influenza, unspecified formulation 08/16/2023 RAMESH [place] [facility] 12/20/2024 16:55:46 Tdap 09/08/2015 RAMESH [place] [facility] 12/20/2024 16:55:46 Tdap 09/11/2012 completed RAMESH [place] [facility] 12/20/2024 16:55:46 COVID-19, mRNA, LNP-S, PF, 30 mcg/0.3 mL dose 04/07/2021 completed RAMESH [place] [facility] 12/20/2024 16:55:56 Past Encounters Encounter ID Performer Location Encounter Start Date Encounter Closed Date Diagnosis/Indication Diagnosis SNOMED-CT Code Diagnosis ICD10 Code Diagnosis IMO Codes Diagnosis Note [id number] [facility] [place] [address] [facility] [address] [place] [address] 08/18/2024 10:09:38 08/24/2024 08:46:31 Adult health examination 935228247 Z00.00 Healthy diet and exercise, HCM as discussed Generalize d anxiety disorder 56204223 F41.1 This is a well controlled chronic [...] can also call the suicide hotline at [phone] Irritable bowel syndrome 06902186 K58.9 This is controlled with diet we will continue to follow Vitamin D deficiency 347 49238 E55.9 This is a stable chronic condition continue current meds labs at next draw Vitamin B1 2 deficiency (non anemic) 93955943 E53.8 This is a stable chronic condition, continue current medication s, labs at an extra Migraine 77415757 G43.90 9 Patient was given 30 mg of Toradol with relief I will give her some p.o. Toradol we discussed the importance of hydration we also discussed signs and symptoms that would warrant urgent attention if this reoccurs we discussed using Ubrelvy we did discuss the med use and side effects Eczema 55906732 L30.9 recurrent rash on face only after eating then resolved, concerning for food sensitivit y [id number] Matias Lin, DO [facility] [place] [address] [facility] [address] [facility] [place] [address] 12/20/2024 16:46:47 12/21/2024 09:15:47 Migraine 02439551 G43.909 Patient was given 30 mg of Toradol with relief I will give her some p.o. Toradol we discussed the importance of hydration we also discussed signs and symptoms that would warrant urgent attention I will also give Ubrelvy we did discuss the med use and side effects HIV screen ing declined 3595591867 92270 Z53.20 [id number] Matias Lin, DO [facility] [place] [address] [facility] [address] [facility] [place] [address] 02/16/2025 10:32:16 02/17/2025 08:41:53 Migraine 64881720 G43.909 patient is pending neurology, will not give ubrelvy will try imitrex, we did discuss meds, use and side effects Vitamin D deficiency 347 72391 E55.9 This is a stable chronic condition continue current meds labs at next draw Irritable bowel syndrome 66587880 K58.9 This is controlled with diet we will continue to follow Cobalamin deficiency 190 860850 E53.8 480485 This is a stable chronic condition, continue current medication s, labs ordered Adult [facility] th examination 259871266 Z00.00 373407 Healthy diet and exercise, HCM as discussed Health Concerns Section Related Observation LastModified by Organization Detai ls LastModified Time None Recorded Concern Status LastModified by Organization Details LastModified Time None Recorded Advance Directives Directive None Recorded Payers Insurance Date Sequence Insurance Name Policy Number Policy Metcalf Covered Member ID Metcalf Member ID Guarantor Name 02/13/2025 1 [facility] [id number] Vijaya Gil [id number] Vijaya Gil Notes Date Note Type Note Provider Name and Address Organization Details Recorded Time 08/18/2024 text/html New patient in to establish with PCM and f/u for the following medical conditions -non-smoker:-exercis e: yes-colonoscopy: No FMHX-Flu shot: We discussed-Covid shots:-HPV:we dicsussed -mammogram:-Pap: 1 year-Bone density: Anxiety:well controlled Vitamin-D deficiency: Taking B12 deficiency: taking history migraines, this started 9 days ago, bitemporal and teeth hurt, pulsating, mild nausea, photosensative Topher Banks [place], [place] - [facility] 08/18/2024 16:42:36 12/20/2024 text/html Patient is in to follow up on migraine headaches -non-smoker:-exercis e: yes-colonoscopy: No FMHX-Flu shot: We discussed-Covid shots:-HPV:we dicsussed -mammogram:-Pap: 1 year-Bone density: Anxiety:well controlled Vitamin-D deficiency: Taking B12 deficiency: taking history migraines, this started 7 days ago, bitemporal and teeth hurt, pulsating, mild nausea, photosensative, 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 and 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 that day MIKEY Licona Attn: Accounting[address] [place], [address], [facility] - [facility] 12/20/2024 17:48:59 02/16/2025 text/html ROS as noted in the HPI Patient is in to follow up on the following medical conditions -non-smoker:-exercis e: yes-colonoscopy: No FMHX-Flu shot: We discussed-Covid shots:-HPV:we discussed -mammogram: N/A-Pap: 1 year-Bone density:N/A Anxiety:well controlled Vitamin-D deficiency: Taking B12 deficiency: taking Migraines: they would not approve ubrelvy so she is MIKEY Licona Attn: Accounting,[address] [facility], [place], [address], [place] 02/16/2025 12:47:58 OBGyn Episode No OBEpisode recorded.
[2025-06-03 09:22] LABS: Hematocrit 36.4 % (37.0-47.0); Hemoglobin 12.1 g/dL (12.0-15.0)
== END 2025-06-03 08:53 | disposition home or self-care (01) ==
LOC: ANHSURGERY 08:56
PROVIDERS: PCP Physician Assistant; Visit Provider Obstetrics & Gynecology
DX: N92.0 Excessive and frequent menstruation with regular cycle (principal); Z01.812 Encounter for preprocedural laboratory examination
CPT/HCPCS: 36415; 85014; 85018

== ENCOUNTER 2025-06-10 02:54 | Day surgery (SDC) | payer OTHER, SELFPAY ==
--- OUTSIDE RECORDS SUMMARY | 2024-08-26 05:40 | XMS_ITS | Continuity of Care Document ---
Author Organization [facility] Address [address] [facility] [address] [place] [address] Phone Care Team Providers Care Tool Shaper Set Up Operator Name Role Phone Neelam Rome MD Unavailable Unavailable Allergies, Adverse Reactions, Alerts Substance Reaction Status Criticality No Known Allergies Resolved No Inform ation Medications Medication Instructions Dosage Effective Dates (start - stop) Status Comments ergocalciferol (vitamin D2) 1,250 mcg (50,000 unit) capsule take as directed - Active cyanocobalamin (vit B-12) 1,000 mcg/mL injection solution take as directed - Active ketorolac 10 mg tablet TAKE 1 TABLET BY MOUTH EVERY 6 HOURS NEEDED FOR MIGRAINES - No Longer Active bupropion HCl XL 150 mg 24 hr tablet, extended release take as directed - No Longer Active Procedures Procedure Date New (Level 3) OFFICE/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 [address] [facility], [place], [address], [place]. tel:[phone] Referring Provider: Kraig Miller, [address] [place] [address], [place], [address]. tel:[phone] [facility], [address] [place] [address], [id number], tel:[phone] [facility] No Information [address] [place]. [address] [facility], [place], [address], [place]. tel:[phone] Referring Provider: Kraig Miller, [facility] [facility] [address], [place], [address]. tel:[phone] [facility], [address] [place] [address], [id number], tel:[phone] [facility] Location No Information 4 [facility] Prov. . Referring Provider: Kraig Miller, [address] [place] [address], [place], [address]. tel:[phone] Family History Family Member Type Diagnosis Age At Onset Problem No family history of Rhiniti s Son Problem Asthma Brother Problem (finding) Asthma Payers Payer name Insurance type Covered constitution party ID Bhavana ochoa(s) [facility] CI [id number] Social History Type Description Quantity Date Captured Comments Alcohol Use Details Unknown Caffeine Use Details Unknown Tobacco Use Status Occasional cigarette smoker Smoking Status Former smoker Maddie e; studying nursingLives in a house (built 1992) w/ central air/forced heat, w/o evidence of mold/water damageFlooring in Bedroom: hard flooringPets: dogs x 2 Smoking Tobacco Use Details Cigarette: No Details Available Cigarette: No Details Available Sex Female Gender Identity Vital Signs Date / Time: Height Weight BMI Pulse Rate Blood Pressure Temperature Respiratory Rate Body Surface Area Head Circumference Head Circ. Percentile Wt./Jonn. Percentile BMI percentile Pulse Ox Inhaled Ox 10:44 AM 65.00 in 58.695 kg (129.40 lbs) 21.5 3 kg/m eter (2) 118 /min 112/66 mm[Hg] 97.80 F 1.64 meter(2) 99 % Chief Complaint And Reason For Visit From encounter dated '08/26/2024 10:40'. rash (chief complaint). Description: She reports intermittent facial rash on chin and cheeks. She notices it occurring after she eats. She has a history of rosacea. This has been going on over the last 6 months. She notices that it happens about 4-5 times per week. The rash is mildly pruritic and is erythematous. It is bumpy. She does not treat the rash as it does not last very long - resolves within 1 hour. She has not had any dyspnea. She wonders if it is related to bread (noticed rash after eating a sandwich at [facility]) or with soft drinks. She notes she ate bread today without issue.She worried it was related to skincare, but changed products without benefit. She is now using &#8 220;hypoallergenic? products. She uses a gentle cleanser. She regularly moisturizes her face. She uses gentle laundry detergent (daughter has eczema)For her rosacea, she was using a cream in the past (~2 years ago) - ran out and is no longer on it.PMH: IBS, lactose intolerance, vitamin B12 deficiency, vitamin D deficiencyPSH: section [id number] Allergies: NKDAAmitryptiline - h eart palpitations / anxiety attacksPrednisone - She was on it for 2 - 3 days. She reports hives when she showered while she was on it. FHAsthma - brother, sonRhinitis - noneSHTobacco: Former Smoker (2 ppm x 1 year; quit 2012)College; studying nursingEnvironmental HistoryLives in a house (built 1992) w/ central air/forced heat, w/o evidence of mold/water damageFlooring in Bedroom: hard flooringPets: dogs x 2Data: I reviewed outside records available in the EMR Reason For Referral Reason For Referral No Information History Of Present Illness Encounter Date Complaint History Of Prese nt Illness rash She reports inte rmittent facial rash on chin and cheeks. She notices it occurring after she eats. She has a history of rosacea. This has been going on over the last 6 months. She notices that it happens about 4-5 times per week. The rash is mildly pruritic and is erythematous. It is bumpy. She does not treat the rash as it does not last very long - resolves within 1 hour. She has not had any dyspnea. She wonders if it is related to bread (noticed rash after eating a sandwich at [facility]) or with soft drinks. She notes she ate bread today without issue.She worried it was related to skincare, but changed products without benefit. She is now using h ypoallergenic products. She uses a gentle cleanser. She regularly moisturizes her face. She uses gentle laundry detergent (daughter has eczema)For her rosacea, she was using a cream in the past (~2 years ago) - ran out and is no longer on it.PMH: IBS, lactose intolerance, vitamin B12 deficiency, vitamin D deficiencyPSH: section [id number] Allergies: NKDAAmitryptiline - heart palpitations / anxiety attacksPrednisone - She was on it for 2 - 3 days. She reports hives when she showered while she was on it. FHAsthma - brother, meenakshiRhinitis - noneSHTobacco: Former Smoker (2 ppm x 1 year; quit 2012)College; studying nursingEnvironmental HistoryLives in a house (built 1992) w/ central air/forced heat, w/o evidence of mold/water damageFlooring in Bedroom: hard flooringPets: dogs x 2Data: I reviewed outside records available in the EMR Functional Status Date Functional Assessmen t No Information Instructions Date Instruction Additional Infor mation No Information Assessments Type Assessment Date assessment Rash assessment Other adverse food reaction, ini tial encounter assessment Lactose intolerance, unspecified Patient Care Teams Name Effective Dates (start - stop) Status Members No Information
[2025-06-02 09:23] VITALS: BMI 22.5
--- NOTE | 2025-06-02 09:31 | PC.NURSE ---
[facility] has started construction of its new state of the art ER which will open Spring 2026. With this, we anticipate parking may be a challenge for some our surgical patients and families. Parking spaces are limited but are available for all Surgical, obstetrics, and ER patients sharing this lot. If you arrive and find you are having a hard time finding a parking space, please note that we understand the challenges, please drive around the hospital and park near Hospital Entrance 1. When you enter this entrance, you can ask a volunteer to direct or take you back to the surgical waiting area to check in. We appreciate everyone?s understanding of these expected challenges while we build for your future. Report to the Outpatient Waiting Room, entrance under the green pavilion located off [address], at time _0615_ on date _[id number]_. Planned Procedure Time: _0815_.? Time changes happen often and if your time is changed the preop area will call you the afternoon before. - You and your visitor will be asked to self-screen and do not enter if you have any COVID symptoms. Please call surgeon if you need to reschedule. - A mask is optional within the hospital at this time. Patients may have clear liquids (water, carbonated beverages, clear teas, apple juice) until 3 hours prior to surgery with a maximum of 20 ounces. - No food from midnight until time of surgery and no smoking, or chewing tobacco (or any form of nicotine). No chewing gum, candy or mints. Take only the following medications with a SIP of water on the morning of surgery: __None____ DO NOT STOP ANY OF YOUR OTHER PRESCRIPTION MEDICATIONS PRIOR TO SURGERY EXCEPT THE FOLLOWING Hold all vitamins and supplements for 3 days per anesthesiologist. Medications to discontinue per physician If need anything for pain use Acetaminophen/Tylenol. Date to take last dose Please no make-up, nail latvian, hairspray, perfume, deodorant, or body powder the day of surgery.? No jewelry (including any body piercings) or valuables the day of surgery, leave them at home.? Please take a shower or bath the night before, or the morning of, surgery with an antibacterial soap.? Wear comfortable, loose fitting clothing.? - Jewelry must be removed prior to entering the operating room.? Rings and piercings that are not removed may be cut off. - The hospital will not accept responsibility for valuables.? - Please leave all valuables, including medications, at home the day of surgery. If you are going home after surgery, a licensed driver examiner must drive you home.? - NO public transportation without another adult if you receive anesthesia. - We recommend that an adult stay with you for 24 hours following discharge. - We also recommend that you do not drive, make important decision, drink alcoholic beverages, or take any drugs that were not prescribed by your health care provider for at least 24 hours after your discharge time. Follow any additional instructions given to you from your surgeon. Telephone instructions given to __Vijaya___and asked if any additional questions and then verbalized understanding. Patient advised to call surgeon office or pre surgery nurse liaison [phone] if any additional questions.
--- NOTE | 2025-06-06 14:01 | PM.IMHP ---
H&P: HPI History of Present Illness Date/Time: 06/06/25 14:01 Chief Complaint: Desires sterilization and excessive heavy bleeding Narrative: 34-year-old 3 para 3 admitted for laparoscopic bilateral salpingectomy hysteroscopy/dilatation curettage/ablation. The patient desires permanent irreversible sterilization. She has been started on hormones in her periods were irregular she had headaches on the hormones and continues to bleed every single day in light of the she will undergo the permanent sterilization in the ablation risks and benefits reviewed including not exclusive of , aspiration pneumonia, bleeding, transfusion, perforation injury to bowel, ureters or other internal organs with need for laparotomy. She received the ACOG handouts entitled hysteroscopy as well as dilatation curettage and she read the Yoselin handout. She had all questions answered past proceed Review of Systems Review of Systems: not repeated day of surgery; patient states no changes in status PMFSH Past Medical History Medical History History of X2 IBS (irritable bowel syndrome) Surgical History Surgical History H/O section Family History Family History Grandparent Cerebrovascular accident Social History Social History Years smoked: 1 Smoking status: Never smoker Tobacco type: cigarettes Second hand tobacco smoke exposure: No Alcohol intake: current Alcohol use details: Rarely Substance use: never Substance use type: does not use Living arrangements: with family Gender identity (if verbalized by the patient): Female Sexual Orientation (if Verbalized by the Patient): Straight or Heterosexual Spiritual care concerns: No Meds Home Medications and Allergies Home Medications ?Medication ?Instructions ?Recorded ?Confirmed ?Type ergocalciferol (vitamin D2) 1,250 50,000 unit PO MONTHLY 11/29/24 06/02/25 History mcg (50,000 unit) capsule ketorolac 10 mg tablet 10 mg PO Q6H PRN migraines 11/29/24 06/02/25 History vitamin B complex (B-Complex 1 tablet PO DAILY 11/29/24 06/02/25 History tablet) Allergies Allergy/AdvReac Type Severity Reaction Status Date / Time amitriptyline AdvReac Severe Chest Pain Verified 06/02/25 09:22 metoclopramide (From Reglan) AdvReac Intermediate Anxiety Verified 06/02/25 09:22 prednisone AdvReac Mild Hives Verified 06/02/25 09:22 Exam Const: General: cooperative, healthy appearing and comfortable Nutritional Appearance: average body habitus Orientation/consciousness: oriented to person, oriented to place and oriented to time HENMT: Head: normal to inspection Resp: Effort & Inspection: normal respiratory effort Cardio: Rate: regular rate Rhythm: regular rhythm Heart sounds: S1 normal heart sound present GI: Inspection: normal to inspection : External Female Exam: normal external appearance Speculum Exam - Vagina: normal appearance of the vagina Speculum Exam - Cervix: normal appearance of the cervix Bimanual exam- vagina & uterus: enlarged Bimanual Exam- Adnexa, other: normal adnexae Assessment and Plan Assessment and plan (1) Sterilization: Code(s): Z30.2 - Encounter for sterilization Status: Acute (2) Menorrhagia: Code(s): N92.0 - Excessive and frequent menstruation with regular cycle Status: Acute Plan Proceed with laparoscopic bilateral tubal ligation hysteroscopy/dilatation curettage/Yoselin ablation
[2025-06-10] VITALS (9 sets, daily range): BP systolic 105–119; BP diastolic 66–90; PULSE 59–93; RESP 12–20; TEMP 36.1–37; O2SAT 98–100
--- OUTSIDE RECORDS SUMMARY | 2025-06-10 02:57 | XMS_ITS | Clinical Summary ---
Author Organization [facility] System Address [address] [place] [id number] Care Team Providers Care Service Desk Team Lead Name Role Phone Kraig Miller PA-C Primary Care Provider [phone] Social History Tobacco Use Types Packs/Day Years [...] Description 06/24/2025 8:00 AM CDT Office Visit [facility]pec[facility] - [facility] [address] [facility], [address] [place] [phone] Dawna Khan NP 3 [facility] [address] [place] [id number] Health Maintenance Due Date Last Done Comments [...] Cancer Screening with HPV 12/10/2019 PHQ-2 (Physician [place]) 09/08/2024 COVID-19 Vaccine (2023-2 5 season) 2025 Influenza Adult (#1) 2025 Meningococcal B Vaccine Aged Out No [...] patient's age to complete this topic Insurance [facility] Care Teams Service Desk Team Lead Relationship Specialty Start Date End Date Kraig Miller PA-C [address] [place] [id number] PCP - General PHYSICIAN STATE ARCHIVIST 01/19/25
--- OUTSIDE RECORDS SUMMARY | 2025-06-10 02:57 | XMS_ITS | Clinical Summary ---
Author Organization [facility] Address [address] [place] [address] Care Team Providers Care Miner Pick Name Role Phone Kraig Miller Primary Care Provider [phone] Allergies Active Allergy Reactions Criticality Noted Date [...] 08/05/2023 Assessment & Plan (09/16/2023 10:16 AM LEASE ADMINISTRATION SUPERVISOR): This is now in excellent control with no SI HI we agree to continue medications follow-up in 3 months. Open door open line Assessment & Plan (08/05/2023 3:12 PM LEASE ADMINISTRATION SUPERVISOR): This is mild with no SI HI [...] map Assessment & Plan (10/30/2021 1:25 PM LEASE ADMINISTRATION SUPERVISOR): Patient has a couple abnormal moles we are going to schedule biopsy Feeding drive 10/30/2021 Hair thinning 10/30/2021 Fatigue 10/30/2021 Routine general medical exam ination at a health care facility 10/29/2021 Assessment & Plan (12/05/2022 3:59 PM CDT): HEALTHCARE MAINTENANCE updated Assessment & Plan (10/30/2021 1:25 PM LEASE ADMINISTRATION SUPERVISOR): Healthcare maintenance updated Loss of appetite 12/28/2020 Assessment & Plan (10/30/2021 1:25 PM LEASE ADMINISTRATION SUPERVISOR): This is new an abnormal I am going to get some routine labs she is going to keep a food diary and were going to follow Irritable bowel syndrome with diarrhea 0 Assessment & Plan (09/16/2023 10:16 AM LEASE ADMINISTRATION SUPERVISOR): This is controlled with diet Assessment & Plan (08/14/2022 3:37 PM LEASE ADMINISTRATION SUPERVISOR): This was properly worked up by GI, [...] me Assessment & Plan (10/30/2021 1:25 PM LEASE ADMINISTRATION SUPERVISOR): This is chronic and fairly stable with diet will continue to follow Palpitations 06/14/2020 Assessment & Plan (09/16/2023 10:16 AM LEASE ADMINISTRATION SUPERVISOR): Patient is already seen Cardiology in his wearing any event monitor and she was asymptomatic during appointment Assessment & Plan (12/06/2021 9:16 AM CDT): These are currently controlled will continue to follow Abdominal bloating 03/02/2020 Chronic diarrhea 03/02/2020 Assessment & Plan (12/05/2022 3:59 PM CDT): This is improved Elevated bilirubin 03/02/2020 Assessment & Plan (10/30/2021 1:25 PM LEASE ADMINISTRATION SUPERVISOR): This is ongoing I am going to order some new bili labs to re-evaluate Frequent UTI 11/02/2015 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, currently , antepartum 11/02/2015 [facility] 11/02/2015 Labor and delivery indication for [...] on file Legal Sex Female 12:51 AM LEASE ADMINISTRATION SUPERVISOR Gender Identity Not on file Sexual Orientation [...] complete this topic Varicella Vaccines Discontinued Insurance [facility] [place] [id number] [place] [address] [facility] CHOICE PLUS Advance Directives For more information, please contact: [phone] Documents on File Type Date Recorded Patient Duty Officer Expl anation ADVANCE DIRECTIVE 03/24/2017 Advance Di rective Checklist Care Teams Miner Pick Relationship Specialty Start Date End Date Kraig Miller PA PCP - General Family Medicine 10/30/21
--- OUTSIDE RECORDS SUMMARY | 2025-06-10 02:57 | XMS_ITS | Data Portability ---
[facility] Organization [facility] Address [address] [facility] [address] Assessment No assessment recorded. Plan of Treatment Reminders Order Date Submit Date Provider Last Modified By Organization Details Last Modified Time Details Appointments ANY 15 2024 10:00A M MIKEY Licona Not available Not available Not available Lab vitamin D, 25-hydro xy, total, serum 2024 025 [employer] [facility], [address], [address], 02/20/2025 10:00:07 TSH + free T4, serum 2024 025 [employer] [facility], [address], [address], 02/20/2025 10:00:04 CMP, serum or plasma 2024 025 [employer] [facility], [facility] [address], [address], 02/20/2025 10:00:04 CBC w/ auto diff 2024 025 [employer] [facility], [address], [address], 02/20/2025 10:00:05 vitamin B12, serum 2024 025 [employer] [facility], [address], [address], 02/20/2025 10:00:06 Referral allergis t referral - possible food allergy/ eczema 2023 024 [facility], [address] [facility], [place], [address], 08/26/2024 14:12:45 Procedures None recorded . Surgeries None recorded . Imaging None recorded . Medication Orders Imitrex 50 mg tablet 2024 025 [facility][id number], [address] [facility], [place], [place], [id number], 02/16/2025 10:51:12 ergocalc iferol (vitamin D2) 1,250 mcg (50,000 unit) capsule 2024 025 [facility]76697, [address], [place], [id number], 02/16/2025 10:44:47 ketorola c 30 mg/mL injectio n syringe 2024 025 [facility] #22176, [address], [place], [id number], 02/16/2025 10:35:08 Ubrelvy 100 mg tablet 2024 025 [facility] #65872, [address], [place], [id number], 02/16/2025 10:44:21 ketorola c 10 mg tablet 2023 024 [facility] #57637, [address], [place], [id number], 08/18/2024 10:42:50 ketorola c 30 mg/mL (1 mL) injectio n solution 2023 024 [facility] #65690, [address] [facility], [place], [place], [id number], 12/20/2024 16:54:57 Patient TargetsNo targets recorded. Patient InstructionsNo instructions recorded. Reason for Referral Differential Specialist Referral for Eczem a possible food allergy/eczema [...] Third trime ster 0.43- 2.91 Not Available [address], [address], 02/20/2025 10:00:03 02/20/20 25 02/20/2025 TSH+F REE T4 T4, free 1.2 NG/dL 0.8-1. 8 normal Not Available [address], [address], 02/20/2025 10:00:03 02/20/20 25 02/20/2025 COMPR EHENS EVE METAB OLIC PANEL glucose 91 mg/dL 65-99 normal Fasti ng refer ence inter lorena Not Available [address], [address], 02/20/2025 10:00:04 02/20/20 25 02/20/2025 COMPR EHENS EVE METAB OLIC PANEL urea nitrogen (BUN) 9 mg/dL 7-25 normal Not Available [address], [address], 02/20/2025 10:00:04 02/20/20 25 02/20/2025 COMPR EHENS EVE METAB OLIC PANEL creatinine 0.56 mg/dL 0.50-0 .97 normal Not Available [address], [address], 02/20/2025 10:00:04 02/20/20 25 02/20/2025 COMPR EHENS EVE METAB OLIC PANEL eGFR 122 mL/mi n/1.7 3m2 > or = 60 normal Not Available [address], [address], 02/20/2025 10:00:04 02/20/20 25 02/20/2025 COMPR EHENS EVE METAB OLIC PANEL BUN/creatini ne ratio SEE NOTE: (calc ) 6-22 Not Repor roby: BUN and Creat inine are withi n refer ence range . Not Available [address], [address], 02/20/2025 10:00:04 02/20/20 25 02/20/2025 COMPR EHENS EVE METAB OLIC PANEL sodium 138 mmol/ L 135-14 6 normal Not Available [address], [address], 02/20/2025 10:00:04 02/20/20 25 02/20/2025 COMPR EHENS EVE METAB OLIC PANEL potassium 4.1 mmol/ L 3.5-5. 3 normal Not Available [address], [address], 02/20/2025 10:00:04 02/20/20 25 02/20/2025 COMPR EHENS EVE METAB OLIC PANEL chloride 103 mmol/ L 98-110 normal Not Available [address], [address], 02/20/2025 10:00:04 02/20/20 25 02/20/2025 COMPR EHENS EVE METAB OLIC PANEL carbon dioxide 25 mmol/ L 20-32 normal Not Available [address], [address], 02/20/2025 10:00:04 02/20/20 25 02/20/2025 COMPR EHENS EVE METAB OLIC PANEL calcium 9.9 mg/dL 8.6-10 .2 normal Not Available [address], [address], 02/20/2025 10:00:04 02/20/2002/20/2025 COMPR EHENS EVE METAB OLIC PANEL protein, total 7.7 g/dL 6.1-8. 1 normal Not Available [address], [address], 02/20/2025 10:00:04 02/20/20 25 02/20/2025 COMPR EHENS EVE METAB OLIC PANEL albumin 5.0 g/dL 3.6-5. 1 normal Not Available [address], [address], 02/20/2025 10:00:04 02/20/20 25 02/20/2025 COMPR EHENS EVE METAB OLIC PANEL globulin 2.7 g/dL_ (calc ) 1.9-3. 7 normal Not Available [address], [address], 02/20/2025 10:00:04 02/20/20 25 02/20/2025 COMPR EHENS EVE METAB OLIC PANEL albumin/glob ulin ratio 1.9 (calc ) 1.0-2. 5 normal Not Available [address], [address], 02/20/2025 10:00:04 02/20/20 25 02/20/2025 COMPR EHENS EVE METAB OLIC PANEL bilirubin, total 1.7 mg/dL 0.2-1. 2 high Not Available [address], [address], 02/20/2025 10:00:04 02/20/20 25 02/20/2025 COMPR EHENS EVE METAB OLIC PANEL alkaline phosphatase 47 U/L 31-125 normal Not Available [address], [address], 02/20/2025 10:00:04 02/20/20 25 02/20/2025 COMPR EHENS EVE METAB OLIC PANEL AST 20 U/L 10-30 normal Not Available [address], [address], 02/20/2025 10:00:04 02/20/20 25 02/20/2025 COMPR EHENS EVE METAB OLIC PANEL ALT 29 U/L 6-29 normal Not Available [address], [address], 02/20/2025 10:00:04 02/20/20 25 02/20/2025 CBC (INCL UDES DIFF/ PLT) white blood cell count 5.6 thous and/u L 3.8-10 .8 normal Not Available [address], [address], 02/20/2025 10:00:05 02/20/20 25 02/20/2025 CBC (INCL UDES DIFF/ PLT) red blood cell count 4.59 charity on/uL 3.80-5 .10 normal Not Available [address], [address], 02/20/2025 10:00:05 02/20/20 25 02/20/2025 CBC (INCL UDES DIFF/ PLT) hemoglobin 13.5 g/dL 11.7-1 5.5 normal Not Available [address], [address], 02/20/2025 10:00:05 02/20/20 25 02/20/2025 CBC (INCL UDES DIFF/ PLT) hematocrit 41.6 % 35.0-4 5.0 normal Not Available [address], [address], 02/20/2025 10:00:05 02/20/2002/20/2025 CBC (INCL UDES DIFF/ PLT) MCV 90.6 fL 80.0-1 00.0 normal Not Available [address], [address], 02/20/2025 10:00:05 02/20/2002/20/2025 CBC (INCL UDES DIFF/ PLT) MCH 29.4 pg 27.0-3 3.0 normal Not Available [address], [address], 02/20/2025 10:00:05 02/20/2002/20/2025 CBC (INCL UDES DIFF/ PLT) MCHC 32.5 g/dL 32.0-3 6.0 normal For adult s, a sligh t decre ase in the calcu lated MCHC value (in the range of 30 to 32 g/dL) is most likel y not clini leslie signi briseyda t; les er, it shoul d be inter prete d with cauti on in carrier clinic n with other red cell broderick eters and the patie nt's clini goran condi tion. Not Available [address], [address], 02/20/2025 10:00:05 02/20/2002/20/2025 CBC (INCL UDES DIFF/ PLT) RDW 12.0 % 11.0-1 5.0 normal Not Available [facility] [address], [address], 02/20/2025 10:00:05 02/20/2002/20/2025 CBC (INCL UDES DIFF/ PLT) platelet count 357 thous and/u L 140-40 0 normal Not Available [address], [address], 02/20/2025 10:00:05 02/20/20 25 02/20/2025 CBC (INCL UDES DIFF/ PLT) MPV 11.0 fL 7.5-12 .5 normal Not Available [address], [address], 02/20/2025 10:00:05 02/20/20 25 02/20/2025 CBC (INCL UDES DIFF/ PLT) absolute neutrophils 3758 cells /uL 1500-7 800 normal Not Available [address], [address], 02/20/2025 10:00:05 02/20/2002/20/2025 CBC (INCL UDES DIFF/ PLT) absolute lymphocytes 1333 cells /uL 850-39 00 normal Not Available [address], [address], 02/20/2025 10:00:05 02/20/20 25 02/20/2025 CBC (INCL UDES DIFF/ PLT) absolute monocytes 370 cells /uL 200-95 0 normal Not Available [address], [address], 02/20/2025 10:00:05 02/20/20 25 02/20/2025 CBC (INCL UDES DIFF/ PLT) absolute eosinophils 90 cells /uL 15-500 normal Not Available [address], [address], 02/20/2025 10:00:05 02/20/2002/20/2025 CBC (INCL UDES DIFF/ PLT) absolute basophils 50 cells /uL 0-200 normal Not Available [address], [address], 02/20/2025 10:00:05 02/20/20 25 02/20/2025 CBC (INCL UDES DIFF/ PLT) neutrophils 67.1 % normal Not Available [address], [address], 02/20/2025 10:00:05 02/20/20 25 02/20/2025 CBC (INCL UDES DIFF/ PLT) lymphocytes 23.8 % normal Not Available [address], [address], 02/20/2025 10:00:05 02/20/20 25 02/20/2025 CBC (INCL UDES DIFF/ PLT) monocytes 6.6 % normal Not Available [facility] [address], [address], 02/20/2025 10:00:05 02/20/20 25 02/20/2025 CBC (INCL UDES DIFF/ PLT) eosinophils 1.6 % normal Not Available [address], [address], 02/20/2025 10:00:05 02/20/20 25 02/20/2025 CBC (INCL UDES DIFF/ PLT) basophils 0.9 % normal Not Available [address], [address], 02/20/2025 10:00:05 02/20/20 25 02/20/2025 VITAM IN B12 vitamin B12 643 pg/mL 200-11 00 normal Not Available [address], [address], 02/20/2025 10:00:06 02/20/20 25 02/20/2025 VITAM IN [...] /MS is recom kelsey d: order code 01699 (toi ents >2yrs ). See Note 1 Note 1 For addit ional infor preeti parker refer to http: //[facility] jordana Arenas stDia gnost ics.c om/fa q/FAQ 199 (This link is being provi ded for infor lidia hairston/ educa manuel blanco purpo ses only. ) Not Available [address], [address], 02/20/2025 10:00:07 Result Notes None recorded. Problems Name Problem SNOMED Code Status Onset Date Resolution Date Notes Provider Name and Address Organization Details Recorded Time Twin 01939779 Active 2012 RAMESH [place], [place] - [facility] 5 16:55:40 False labor before 37 completed weeks of gestation 599515952377 04918 Active 2013 RAMESH [place] [facility] [place] 16:55:40 Delivery finding 143251406 Active 2013 RAM[place] [facility] 5 16:55:40 Hereditar y disease in family possibly affecting fetus 36326609 Active 2015 RAMESH [place] [facility] 5 16:55:40 Recurrent urinary tract infection 033232875 Completed 201511/02/2015 RAMESH [place] [facility] 5 14:48:37 High risk 63398899 Active 2015 RAM[place] [facility] [place] 16:55:40 Abdominal bloating 539839196 Active 2019 RAMESH [place] [facility] [place] 16:55:40 Chronic diarrhea 107018829 Completed 201903/02/2020 RAMESH [place] [facility] 14:48:37 Bilirubin level above reference range 16840628 Active 2019 Topher Winn [place] [facility] 16:55:40 Palpitati ons 24099440 Completed 201906/14/2020 Topher Winn [place] [facility] 14:48:37 Irritable bowel syndrome with diarrhea 590468208 Active 2019 RAMESH [place] [facility] 16:55:40 Loss of appetite 56948505 Active 2020 RAM[place] [facility] 16:55:40 Patient encounter status 864035999 Completed 202110/29/2021 RAMESH [place] [facility] 14:48:37 Suppressi on of menstruat ion 064659672 Active 2021 RAMESH [place] [facility] 16:55:40 Dysplasti c nevus of skin 117050382 Active 2021 RAM[place] [facility] 16:55:40 Loss of hair 821341833 Active 2021 RAM[place] [facility] 16:55:40 Hungry 29580358 Active 2021 Shubuta RAMESH [place] [facility] 16:55:40 Fatigue 91400183 Active 2021 RAM[place] [facility] 16:55:40 Skin tag 326533907 Active 2021 Shubuta RAMESH [place] [facility] 16:55:40 Eruption 092965845 Active 2021 RAM[place] [facility] 16[place]55:40 Removal of sutures done 927267732330 107 Active 2021 Topher RAMESH [place] [facility] 5 16:55:40 Rosacea 000149899 Active 2022 Topher Winn [place] [facility] 16:55:40 Sore throat 834576423 Active 2022 Topher Winn [place] [facility] 5 16:55:40 Generaliz ed anxiety disorder 31757722 Completed 202208/05/2023 Topher Winn [place] [facility] 5 14:48:37 Hypercalc emia 26977730 Active 2023 Topher Winn [place] [facility] 5 16:55:40 Multiple premature ventricul ar complexes 385443475 Completed 202311/13/2023 Topher Winn [place] [facility] 5 14:48:37 Vitamin B12 deficienc y (non anemic) 99067455 Active 2023 MIKEY Licona Attn: Accountin g,[address] [place], [address], [place] [facility] 4 06:54:42 Vitamin D deficienc y 35957398 Active 2023 MIKEY Licona Attn: Accountin g,[address] [place], [address], [place] [facility] 4 06:54:43 Irritable bowel syndrome 43048980 Active 2023 MIKEY Licona Attn: Accountin g,[address] [place], [address], [place] [facility] 4 06:54:44 Adult health examinati on Active 2023 MIKEY Licona Attn: Accountin g,[address] [place], [address], [place] [facility] 4 06:54:47 Migraine 13955098 Active 2023 MIKEY Licona Attn: Accountin g,[address] [facility] [place] [place], [address], [facility] - [facility] 4 10:41:04 Problem Notes None recorded. Medical Equipment None Reported. Allergies Allergen ID Allergen Name Allergen Category Reaction Reaction Severity Criticality Documentation Date Start Date Code Code System Note Provider Name and Address Organization Details Recorded Time 575540 prednison e medicatio n hives Not available high 08/17/20242021 8640 RxNorm [facility], [place] - [facility] 5 16:54:32 559496 amitripty line medicatio n palpitati ons Not available [facility] 08/17/20242021 704 RxNorm [facility], [place] - [place] 5 16:54:29 475622 metoclopr amide Not available other Not available high 01/07/20252024 6915 RxNorm Feeli ng of twitc salma, some irrit abili ty [facility], [place] - [place] 5 14:48:05 Medications Name Sig [...] Updated DateTime 5 165.1 cm 21.7 kg/m2 40357.7 6 g 99 % 99 % 104 /min 8 114/64 mm[Hg] [facility] 5 17:00:41 Date Recorded Body height Body mass index (BMI) Body weight Oxygen saturation Oxygen saturation in Arterial blood by Pulse oximetry Heart rate Systolic And Diastolic Provider Name and Address Organization Details Last Updated DateTime 5 165.1 cm 20.3 kg/m2 11277.2 7 g 99 % 99 % 83 /min 112/62 mm[Hg] Dionna Samuel [facility] 5 10:36:56 Date Recorded Body height Body mass index (BMI) Body weight Oxygen saturation Oxygen saturation in Arterial blood by Pulse oximetry Heart rate Pain severity - 0-10 verbal numeric rating [Score] - Reported Body temperature Systolic And Diastolic Provider Name and Address Organization Details Last Updated DateTime 4 165.1 cm 21 kg/m2 85976.0 9 g 98 % 98 % 89 [...] Of Your Most Recent Tobacco Screening? 02/16/2025 [email or web address] Information not available 02/16/2025 At What Age Did You Start Smoking Tobacco? 21 Information not available 12/20/2024 How Much Tobacco Do You Smoke? No Information not available 12/20/2024 Has Tobacco Cessation Counseling Been Provided? No [email or web address] Information not available 02/16/2025 How Many Years [...] ICD10 Code Diagnosis IMO Codes Diagnosis Note [id number] MIKEY [facility]icona [facility] [place] [address] [facility] [address] [place] [address] 08/18/2024 10:09:38 08/24/2024 08:46:31 Adult health examination 250578053 Z00.00 Healthy diet and exercise, HCM as discussed Generalize d anxiety disorder 20301576 F41.1 This is a well controlled chronic [...] can also call the suicide hotline at [phone]- [phone] Irritable bowel syndrome 15515608 K58.9 This is controlled with diet we will continue to follow Vitamin D deficiency 347 42723 E55.9 This is a stable chronic condition continue current meds labs at next draw Vitamin B1 2 deficiency (non anemic) 62519767 E53.8 This is a stable chronic condition, continue current medication s, labs at an extra Migraine 43191412 G43.90 9 Patient was given 30 mg of Toradol with relief I will give her some p.o. Toradol we discussed the importance of hydration we also discussed signs and symptoms that would warrant urgent attention if this reoccurs we discussed using Ubrelvy we did discuss the med use and side effects Eczema 42121357 L30.9 recurrent rash on face only after eating then resolved, concerning for food sensitivit y 6410382 Matias Lin, DO [facility] [place] [address] [facility] [address] [facility] [place] [address] 12/20/2024 16:46:47 12/21/2024 09:15:47 Migraine 19049829 G43.909 Patient was given 30 mg of Toradol with relief I will give her some p.o. Toradol we discussed the importance of hydration we also discussed signs and symptoms that would warrant urgent attention I will also give Ubrelvy we did discuss the med use and side effects HIV screen ing declined 0729249915 20790 Z53.20 [id number] Matias Lin, DO [facility] [place] [address] [facility] [address] [facility] [place] [address] 02/16/2025 10:32:16 02/17/2025 08:41:53 Migraine 44664885 G43.909 patient is pending neurology, will not give ubrelvy will try imitrex, we did discuss meds, use and side effects Vitamin D deficiency 347 40009 E55.9 This is a stable chronic condition continue current meds labs at next draw Irritable bowel syndrome 72750604 K58.9 This is controlled with diet we will continue to follow Cobalamin deficiency 190 793098 E53.8 516133 This is a stable chronic condition, continue current medication s, labs ordered Adult [facility] th examination 453394299 Z00.00 490691 Healthy diet and exercise, HCM as discussed Health Concerns Section Related Observation LastModified by Organization Detai ls LastModified Time None Recorded Concern Status LastModified by Organization Details LastModified Time None Recorded Advance Directives Directive None Recorded Payers Insurance Date Sequence Insurance Name Policy Number Policy Metcalf Covered Member ID Metcalf Member ID Guarantor Name 02/13/[address] [facility] [id number] Vijaya Gil [id number] Vijaya Gil Notes Date Note Type Note [...] teeth hurt, pulsating, mild nausea, photosensative Topher [place] alli, [place] - [facility] 08/18/2024 16:42:36 12/20/2024 text/html Patient is in to follow up on migraine headaches -non-smoker:-exercis e: yes-colonoscopy: No FMHX-Flu shot: We discussed-Covid shots:-HPV:we dicsussed -mammogram:-Pap: 1 year-Bone density: Anxiety:well controlled Vitamin-D deficiency: Taking B12 deficiency: taking history migraines, this started 7 days ago, bitemporal and teeth hurt, pulsating, mild nausea, photosensative, 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 and 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 that day MIKEY Licona Attn: Accounting[address] [place], [address], [facility] - [facility] 12/20/2024 17:48:59 02/16/2025 text/html ROS as noted in the HPI Patient is in to follow up on the following medical conditions -non-smoker:-exercis e: yes-colonoscopy: No FMHX-Flu shot: We discussed-Covid shots:-HPV:we discussed -mammogram: N/A-Pap: 1 year-Bone density:N/A Anxiety:well controlled Vitamin-D deficiency: Taking B12 deficiency: taking Migraines: they would not approve ubrelvy so she is MIKEY Licona Attn: Accounting[address] [facility], [place], [address], [place] [facility] 02/16/2025 12:47:58 OBGyn Episode No OBEpisode recorded.
--- OUTSIDE RECORDS SUMMARY | 2025-06-10 02:57 | XMS_ITS | Clinical Summary ---
Author Organization [facility] Address [address] [place] [address] Care Team Providers Care Test Worker Name Role Phone Unavailable Primary Care Provider Unavailabl e Allergies No known active allergies Medications eeecdiat-cs-wyn- fe-fA ( VITAMIN) Oral TabIndications:M issed menses [...] Advance Directives For more information, please contact: [phone] * Full Code (Latest Code Status on File) Date Activated Date Inactivated Comments 11/30/2013 11:56 PM 12/04/2013 3:26 PM * Full Code Date Activated Date Inactivated Comments 11/30/2013 6:01 PM 11/30/2013 11:56 PM * Full Code Date Activated Date Inactivated Comments 11/08/2013 11:36 PM 11/10/2013 2:58 PM
--- OUTSIDE RECORDS SUMMARY | 2025-06-10 02:59 | XMS_ITS | Clinical Summary ---
Author Organization [facility] Address [address] [place] [address] Care Team Providers Care Job Developer For Deaf Adults Name Role Phone Cl Bains MD Primary Care Provider [phone] Cl Bains MD Unavailable Source Comments [facility],non-owned Affiliates and Associated Physician Practices is amultiple site organization consisting of ambulatory clinics and hospital sitesin [place], [place], [place] and [place]. This disclosure is being madepursuant to the Care Everywhere program and may not contain all information available regarding this patient. 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
--- NOTE | 2025-06-10 06:33 | WPDHPUPDATE1 ---
History and Physical Update Update Date/Time: 06/10/25 06:33 History and Physical has been reviewed, including an updated exam of the patient. There are NO changes in the patient's condition. Risks, benefits, and alternatives have been discussed and questions answered. Patient agrees to proceed with procedure.
[2025-06-10] MEDS: ACETAMINOPHEN 500 MG TABLET 1000 MG PO (06:40)
[2025-06-10 06:43] LABS: BEDSIDEPREGUCG Negative (Negative)
[2025-06-10] MEDS: LACTATED RINGERS 1,000 ML 30 ML IV CONT ×2 (06:45→08:46)
[2025-06-10] MEDS: KETOROLAC 15 MG/ML VIAL (*BKC) IV PUSH ×2 (06:50→08:40)
[2025-06-10] MEDS: SCOPOLAMINE 1 MG PATCH 1 PATCH TRANSDERM (06:57)
--- NOTE | 2025-06-10 07:01 | WPDANESEPPF ---
Anes - Initial Pre Proc Eval Procedure: Operation Date: 06/10/25 08:15 Proposed Procedures p Hysteroscopy Dilation and Curettage with Yoselin Endometrial Ablation, Laparoscopic Bilateral Salpingectomy - Derek Murphy MD Date/Time: 06/10/25 07:01 Surgeon: Derek Murphy MD Pre Op Diagnosis: Desire Sterlization, Irrg bleeding Patient Data Age: 34 Gender: F Height: 1.65 m Weight: 60.2 kg Last Vital Signs Temp 37.0 C 06/10/25 06:41 Pulse 93 06/10/25 06:41 Resp 16 06/10/25 06:41 BP 117/69 06/10/25 06:41 Pulse Ox 98 06/10/25 06:41 O2 Del Method Room Air 06/10/25 06:41 Allergies Allergy/AdvReac Type Severity Reaction Status Date / Time amitriptyline AdvReac Severe Chest Pain Verified 06/02/25 09:22 metoclopramide (From Reglan) AdvReac Intermediate Anxiety Verified 06/02/25 09:22 prednisone AdvReac Mild Hives Verified 06/02/25 09:22 Home Medications ?Medication ?Instructions ?Recorded ?Confirmed ?Type ergocalciferol (vitamin D2) 1,250 50,000 unit PO MONTHLY 11/29/24 06/10/25 History mcg (50,000 unit) capsule ketorolac 10 mg tablet 10 mg PO Q6H PRN migraines 11/29/24 06/02/25 History vitamin B complex (B-Complex 1 tablet PO DAILY 11/29/24 06/10/25 History tablet) hydrocodone 5 mg-acetaminophen 325 1 tablet PO Q4H PRN pain #20 tabs 06/10/25 Rx mg tablet Laboratory Tests 06/10/25 06:41 POC Urine HCG, Qual Negative (Negative) Patient hx anesthesia problems: none Family hx anesthesia problems: none Results Review: All pre-operative results and documents have been reviewed as part of the pre-operative evaluation. [facility] Past Medical History Medical History History of X2 IBS (irritable bowel syndrome) Surgical History Surgical History H/O section Family History Family History Grandparent Cerebrovascular accident Social History Social History Years smoked: 1 Smoking status: Former smoker Tobacco type: cigarettes Second hand tobacco smoke exposure: No Alcohol intake: current Alcohol use details: Rarely Substance use: never Substance use type: does not use Living arrangements: with family Gender identity (if verbalized by the patient): Female Sexual Orientation (if Verbalized by the Patient): Straight or Heterosexual Spiritual care concerns: No Anes - Eval Final PreProcedure Day of Procedure 06/10/25 07:01 Patient weight: normal Heart: regular rate and rhythm Lungs: clear to auscultation Airway: Mallampati scale class II Neurological: alert and oriented Last oral intake: >/= 8 hours ASA classification: II Emergent: no Anesthetic plan: proceed Anesthesia type and monitoring: general GIVS and standard monitoring Results Review: All pre-operative results and documents have been reviewed as part of the pre-operative evaluation. Informed Consent: The patient's anesthetic plan and its attendant risks and benefits were discussed with the patient/family/POA. Questions were solicited and answers provided to the satisfaction of the patient/family/POA.
--- NOTE | 2025-06-10 08:33 | S_PTH ---
PATIENT: Vijaya Gil LOC: [facility] U#:[id number] AGE/SX: 34/F ROOM: RE06/10/[address]: Derek Murphy MD : 1990 BED: DIS: 06/10/2025 SPEC #: [id number] RECD: 06/10/25 09:14 STATUS: JERRY RESarah #: [id number] MIRIAN: 06/10/25 08:[address]: Derek Millard DEPT: [facility] Surgical RECD BY: Lorne Reina ENTERED: 06/10/25 09:15 SP TYPE: Surgical OTHR DR: Kraig Miller, PA-C Tissues: A - Endometrial Curettings B - Fallopian Tube Bilateral Procedures: Gross and Microscopic Level 2 Hematoxylin and Eosin Stain Gross and Microscopic Level 4
--- NOTE | 2025-06-10 08:42 | P.OP_ITS ---
Procedure Note - Detailed Date of Procedure 06/10/25 Pre-op Diagnosis Desire Sterlization, Irrg bleeding Post-op Diagnosis Same Procedure Performed Laparoscopic bilateral salpingectomy/hysteroscopy/dilatation curettage/Yoselin ablation Surgeon Derek Murphy MD Anesthesia General Indications This is a 34-year-old multiparous female admitted for laparoscopy bilateral salpingectomy hysteroscopy dilatation curettage Yoselin ablation Findings Normal-appearing ovaries tubes and uterus. Normal-appearing uterine lining. Description of Procedure The patient was prepped and draped in the normal sterile fashion placed in the dorsal lithotomy position. Under excellent general trach anesthesia weighted speculum placed in the posterior fornix of vagina. Anterior lip of the cervix grasped with a single-tooth tenaculum. Camejo's cannula inserted the cervix and attached to the single-tooth. This would be used later for uterine manipulation. The bladder emptied of clear urine. The weighted speculum was re moved. The gloves were changed. An infraumbilical incision made the Veress needle passed in the abdomen. Abdomen filled with CO2 gas [id number]. The 5mm trocar advanced in the abdomen. Downside visualized no injury seen. Patient placed in Trendelenburg and a suprapubic incision made. The 5mm trocar advanced under direct visualization assuring no injury. A left lower quadrant incision made the 5mm trocar advanced under direct visualization assuring no injury. The right fallopian tube was grasped and using the LigaSure this was serially clamped burned and cut and brought away from the ovarian complex to its uterine origin. This was then cut and passed through the left lower quadrant incision. In similar fashion on the left fallopian tube was sharply dissected away from the ovarian complex until it was free to the uterine origin. This was then bisected clamped burned cut and removed through the left lower quadrant incision. Hemostasis was assured and photo documentation undertaken the lower site removed. The gas removed from the abdomen. The upper sites removed. The incisions closed with 4-0 Monocryl and glue. Attention was turned to the hysteroscopy. The uterus sounded 8cm. Serial dilatation fragmented dilators performed followed by passage of the 5mm visualizing hysteroscope using normal saline as visualizing medium. Normal- appearing endometrium was seen in photo documentation was undertaken. The uterus then scraped over the entire 360? until a good grating sound was heard. Next the Yoselin instrument was placed in the uterus and burned for 120seconds. This was then withdrawn. The hysteroscope reinserted and showed a good burn the instruments were withdrawn. The patient was awakened went recovery in satisfactory condition. All sponge, needle, instrument counts were correct. There were no immediate complications Estimated Blood Loss 5 Drains No Packing No Pathology Yes Complications No immediate complications Condition Stable Disposition PACU
[2025-06-10] MEDS: fentaNYL CITRATE INJ (*CRX) 100 MCG/2 ML VIAL 25 MCG IV PUSH ×2 (09:40→09:42)
[2025-06-10] MEDS: ONDANSETRON INJ 4 MG/2 ML VIAL IV PUSH (09:41)
== END 2025-06-10 10:55 | disposition home or self-care (01) ==
PROVIDERS: PCP Physician Assistant; Visit Provider Obstetrics & Gynecology
PROC: 0UDB8ZZ Extraction of Endometrium, Via Natural or Artificial Opening Endoscopic (ICD-10-PCS; CPT 58558; principal; 2025-06-10 08:15)
DX: N92.0 Excessive and frequent menstruation with regular cycle (principal); Z30.2 Encounter for sterilization; Z87.891 Personal history of nicotine dependence
CPT/HCPCS: 58661; 58563; 88302; 88305; A9270; J1885; J2003; J2250; J2405; J2704; J3010; J7120